=== PATIENT | female | born 1985 | race Caucasian/White ===

== ENCOUNTER 2018-06-18 22:33 | Emergency (ER) | payer OTHER, SELFPAY ==
[2018-06-18 22:53] VITALS: O2SAT 98
--- NOTE | 2018-06-18 23:13 | ERPHSYRPT ---
- History of Present Illness Time Seen by Provider: 06/18/18 23:06 Source: patient Exam Limitations: no limitations Patient Subjective Stated Complaint: Headache Triage Nursing Assessment: Patient ambulated back to ER and transferred self to bed. Patient complains of headache 7/10. Patient states her headache was 10/10 so she layed down then stood up and felt pressure and her vision started getting blurry as she was walking. Patient light sensitive. Physician History: The patient is a 33-year-old female with her mother complaining that she started getting a headache about 8:00 tonight, or 3 hours ago. She tried to go to sleep but when she got up she felt a funny feeling in her head. She is a little bit nauseated. Light bothers her. She had significant amounts of alcohol last night because it was her 33st birthday. She started having headaches about 2 months ago of a similar nature. She denies numbness or tingling. She did have blurred vision tonight with the onset of the headache. She denies any head trauma. The headache is at the top of her head. Her past medical history is unremarkable. Timing/Duration: today, hour(s) (3), sudden, worse Quality: fullness, pressure Head Pain Location: parietal Severity of Pain-Max: moderate Severity of Pain-Current: moderate Recent Head Trauma: occasional headaches Modifying Factors: Improves With: exposure to light Associated Symptoms: nausea/vomiting, vision changes, No loss of consciousness, No numbness in legs/feet Previous symptoms: same symptoms as today, no recent treatment Allergies/Adverse Reactions: No Known Drug Allergies Allergy (Verified 06/18/18 22:53) Hx Tetanus, Diphtheria Vaccination/Date Given: No Hx Influenza Vaccination/Date Given: No Hx Pneumococcal Vaccination/Date Given: No Immunizations Up to Date: Yes - Review of Systems Constitutional: No Fever, No Chills Eyes: Photophobia, Vision Changes Ears, Nose, & Throat: No Symptoms Respiratory: No Cough, No Dyspnea Cardiac: No Chest Pain, No Edema, No Syncope Abdominal/Gastrointestinal: No Abdominal Pain, No Nausea, No Vomiting, No Diarrhea Genitourinary Symptoms: No Dysuria Musculoskeletal: No Back Pain, No Neck Pain Skin: No Rash Neurological: Headache Psychological: No Symptoms Endocrine: No Symptoms Hematologic/Lymphatic: No Symptoms Immunological/Allergic: No Symptoms All Other Systems: Reviewed and Negative - Past Medical History Pertinent Past Medical History: No Neurological History: No Pertinent History ENT History: No Pertinent History Cardiac History: No Pertinent History Respiratory History: No Pertinent History Endocrine Medical History: No Pertinent History Musculoskeletal History: No Pertinent History GI Medical History: No Pertinent History History: No Pertinent History Psycho-Social History: Anxiety, Panic Disorder Female Reproductive Disorders: No Pertinent History Other Medical History: NONE; CURRENTLY NOT TAKING ANYTHING FOR PAIN. - Past Surgical History Past Surgical History: Yes Gastrointestinal: Cholecystectomy Female Surgical History: Section - Social History Smoking Status: Current some day smoker How long have you smoked: 10 years Exposure to second hand smoke: Yes Alcohol Use: Socially Drug Use: none Patient Lives Alone: No Significant Family History: no pertinent family hx - Female History Hx Last Menstrual Period: two weeks ago Hx Now: No - Nursing Vital Signs Nursing Vital Signs: Initial Vital Signs Temperature 98.6 F 06/18/18 22:47 Pulse Rate 90 06/18/18 22:47 Respiratory Rate 18 06/18/18 22:47 Blood Pressure 125/82 06/18/18 22:47 O2 Sat by Pulse Oximetry 98 06/18/18 22:47 Pain Scale Pain Intensity 5 - Physical Exam General Appearance: mild distress, obese Eye Exam: PERRL/EOMI, photophobia Ears, Nose, Throat Exam: normal ENT inspection, moist mucous membranes Neck Exam: normal inspection, supple, full range of motion, No meningismus Respiratory Exam: normal breath sounds, lungs clear Cardiovascular Exam: regular rate/rhythm, normal heart sounds Gastrointestinal/Abdominal Exam: soft, No tenderness, No distention Back Exam: normal inspection, normal range of motion Extremity Exam: normal inspection Mental Status Exam: alert, oriented x 3, 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 Exam: normal speech, PERRL, hearing deficit (R) (known hearing loss in right ear), No abnormal speech, No facial asymmetry, No facial droop, No facial paresthesias, No facial weakness Coordination/Gait Exam: normal cerebellar function Motor/Sensory Exam: no motor deficit, no sensory deficit Skin Exam: normal color, warm, dry, No rash SpO2 Interpretation: normal SpO2: 98 Oxygen Delivery: Room Air - CT Exams Head CT Interpretation: Negative, Tele-radiologist Report (per Dr Crews), No/ Intracranial Hemorrhag Ordered Tests: Active Orders 24 hr Category Date Time Status HEAD WITHOUT CONTRAST [CT] Stat Exams 06/18/18 23:57 Taken Medication Summary Discontinued Medications Generic Name Dose Route Start Last Admin Trade Name Chelsea PRN Reason Stop Dose Admin Ketorolac Tromethamine 60 mg 06/19/18 00:25 06/19/18 00:49 Toradol 30 Mg Injection IM 06/19/18 00:26 60 mg STAT ONE Administration Ketorolac Tromethamine Confirm 06/19/18 00:28 Toradol 30 Mg Injection Administered 06/19/18 00:29 Dose 60 mg .ROUTE .STK-MED ONE Promethazine HCl 50 mg 06/19/18 00:25 06/19/18 00:50 Phenergan 25 Mg Inj IM 06/19/18 00:26 50 mg STAT ONE Administration Promethazine HCl Confirm 06/19/18 00:28 Phenergan 25 Mg Inj Administered 06/19/18 00:29 Dose 50 mg .ROUTE .STK-MED ONE - Progress Progress: improved Blood Culture(s) Obtained: No Antibiotics given: No Counseled pt/family regarding: diagnosis, rad results - Departure Time of Disposition: 01:01 Departure Disposition: Home Clinical Impression: Headache Condition: Stable Critical Care Time: No Referrals: KOJO ANN [Primary Care Provider] - Additional Instructions: You have a migraine headache. You were given Toradol 60 mg and Phenergan 50 mg by IM in the ER. Stay well hydrated. Follow-up with your primary medical doctor as needed.
[2018-06-19 00:10] VITALS: BP 123/81; PULSE 82
[2018-06-19] MEDS ORDERED: Phenergan 25 MG INJ IM ONE (00:25)
[2018-06-19] MEDS ORDERED: TORAdol 30 mg Injection IM ONE (00:25)
[2018-06-19] MEDS ORDERED: TORAdol 30 mg Injection ONE (00:28)
[2018-06-19] MEDS ORDERED: Phenergan 25 MG INJ ONE (00:28)
--- NOTE | 2018-06-19 09:13 | XRAY ---
Indication: Headache. Multiple contiguous axial images obtained through the head without contrast. Comparison: None. Normal brain parenchyma, ventricles, and bony calvarium. Visualized paranasal sinuses and mastoid air cells are clear. Impression: Normal CT head without contrast exam. Comment: Preliminary interpretation was made by [facility]. No discrepancy. CT DI 67.99
== END 2018-06-19 01:37 | disposition home or self-care (01) ==
LOC: ED 22:33
DX: R51 Headache (principal); R11.0 Nausea; R11.2 Nausea with vomiting, unspecified; H53.9 Unspecified visual disturbance
CPT/HCPCS: 70450; 96372; 99284; J1885; J2550

== ENCOUNTER 2018-08-21 14:21 | Emergency (ER) | payer OTHER ==
[2018-08-21 14:31] VITALS: O2SAT 98
[2018-08-21] MEDS ORDERED: BABY ASPIRIN 81 MG CHEW PO ONE (14:43)
[2018-08-21] MEDS ORDERED: Sodium Chloride 0.9% 1000 ML 1,000 ML IV SCH (14:45)
--- NOTE | 2018-08-21 14:51 | ERPHSYRPT ---
- History of Present Illness Time Seen by Provider: 08/21/18 14:38 Historian: patient Exam Limitations: clinical condition Patient Subjective Stated Complaint: PT ARRIVED PER AMBULANCE FOR CO CHEST PRESSURE OFF AND ON TODAY, SHE WAS AT [facility] ? [facility] WHEN IT STARTED,DIZZINESS AT TIMES Triage Nursing Assessment: PT ALERT, RESP EASY, CHEST CLEAR, ABD SOFT, NO EDEMA Physician History: PATIENT COMPLAINS OF HAVING SUBSTERNAL PRESSURE DISCOMFORT OVER THE PAST 4-5 DAYS, EXACERBATED UPON INSPIRATION AND MOTION OF CHEST. HAS ASSOCIATED OCCASIONAL PATIENT DENIES FEVER, CHILLS, DYSPNEA, RADIATION OF PAIN TO HER, NECK , JAW OR ARMS. HAS A NONPRODUCTIVE COUGH. Timing/Duration: day(s) Activities at Onset: none Quality: pressure Location: substernal Chest Pain Radiation: no radiation Severity of Pain-Max: moderate Severity of Pain-Current: moderate Modifying Factors: Improves With: movement, change in position Associated Symptoms: cough Prior Chest Pain/Cardiac Workup: no prior chest pain Aspirin Treatment Today: 81 mg x 4, provided by ED Allergies/Adverse Reactions: No Known Drug Allergies Allergy (Verified 06/18/18 22:53) Hx Tetanus, Diphtheria Vaccination/Date Given: No Hx Influenza Vaccination/Date Given: No Hx Pneumococcal Vaccination/Date Given: No Immunizations Up to Date: No - Review of Systems Constitutional: No Fever, No Chills Eyes: No Symptoms Ears, Nose, & Throat: No Symptoms Respiratory: No Symptoms, No Cough, No Dyspnea Cardiac: No Chest Pain, No Edema, No Syncope Abdominal/Gastrointestinal: No Symptoms, No Abdominal Pain, No Nausea, No Vomiting, No Diarrhea Genitourinary Symptoms: No Symptoms, No Dysuria Musculoskeletal: No Symptoms, No Back Pain, No Neck Pain Skin: No Symptoms, No Rash Neurological: No Dizziness, No Focal Weakness, No Sensory Changes Psychological: No Symptoms Endocrine: No Symptoms All Other Systems: Reviewed and Negative - Past Medical History Pertinent Past Medical History: No Neurological History: No Pertinent History ENT History: No Pertinent History Cardiac History: No Pertinent History Respiratory History: No Pertinent History Endocrine Medical History: No Pertinent History Musculoskeletal History: No Pertinent History GI Medical History: No Pertinent History History: No Pertinent History Psycho-Social History: Anxiety, Panic Disorder Female Reproductive Disorders: No Pertinent History Other Medical History: NONE; CURRENTLY NOT TAKING ANYTHING FOR PAIN. - Past Surgical History Past Surgical History: Yes Gastrointestinal: Cholecystectomy Female Surgical History: Section - Social History Smoking Status: Current every day smoker How long have you smoked: 10 years Exposure to second hand smoke: Yes Alcohol Use: Socially Drug Use: none Patient Lives Alone: No Significant Family History: no pertinent family hx - Female History Hx Last Menstrual Period: NOV Hx Now: No - Nursing Vital Signs Nursing Vital Signs: Initial Vital Signs Temperature 97.2 F 08/21/18 14:25 Pulse Rate 90 08/21/18 14:25 Respiratory Rate 16 08/21/18 14:25 Blood Pressure 103/78 08/21/18 14:25 O2 Sat by Pulse Oximetry 98 08/21/18 14:25 Pain Scale Pain Intensity 7 - Physical Exam General Appearance: no apparent distress, alert Eye Exam: PERRL/EOMI, eyes nml inspection Ears, Nose, Throat Exam: normal ENT inspection, moist mucous membranes Neck Exam: normal inspection, non-tender, supple, full range of motion Respiratory Exam: normal breath sounds, chest tenderness (PARASTERNAL TENDERNESS T-4 TO T-6), lungs clear, No respiratory distress Cardiovascular Exam: regular rate/rhythm, normal heart sounds Gastrointestinal/Abdomen Exam: soft, normal bowel sounds, No tenderness, No mass Back Exam: normal inspection, No CVA tenderness, No vertebral tenderness Extremity Exam: normal inspection, normal range of motion Neurologic Exam: alert, oriented x 3, cooperative, normal mood/affect, sensation nml, No motor deficits Skin Exam: normal color, warm, dry SpO2 Interpretation: normal SpO2: 98 Oxygen Delivery: Room Air - Course EKG Interpreted by Me: RATE, Sinus Rhythm, NORMAL AXIS - Radiology Exams Chest X-ray Interpretation: Interpreted by me, Negative, No Infiltrates Ordered Tests: Active Orders 24 hr Category Date Time Status CHEST 2 VIEWS (PA AND LAT) Stat Exams 08/21/18 15:32 Taken CBC W DIFF Stat Lab 08/21/18 15:06 Completed CMP Stat Lab 08/21/18 15:06 Completed D-DIMER QUANTITATION Stat Lab 08/21/18 15:06 Completed HCG,QUALITATIVE URINE Stat Lab 08/21/18 15:21 Completed MAGNESIUM Stat Lab 08/21/18 15:06 Completed PROTIME WITH INR Stat Lab 08/21/18 15:06 Completed TROPONIN Q3H Lab 08/21/18 15:06 Completed TROPONIN Q3H Lab 08/21/18 17:45 Ordered TROPONIN Q3H Lab 08/21/18 20:45 Ordered TROPONIN Q3H Lab 08/21/18 23:45 Ordered TROPONIN Q3H Lab 08/22/18 02:45 Ordered UA W/RFX UR CULTURE Stat Lab 08/21/18 15:21 Completed Medication Summary Generic Name Dose Route Start Last Admin Trade Name Chelsea PRN Reason Stop Dose Admin Sodium Chloride 1,000 mls @ 50 mls/hr 08/21/18 14:45 08/21/18 14:55 Sodium Chloride 0.9% 1000 Ml IV 09/20/18 14:44 50 mls/hr .Q20H NANCY Administration Discontinued Medications Generic Name Dose Route Start Last Admin Trade Name Chelsea PRN Reason Stop Dose Admin Aspirin 324 mg 08/21/18 14:43 08/21/18 14:55 Baby Aspirin 81 Mg Chew PO 08/21/18 14:44 324 mg STAT ONE Administration Aspirin Confirm 08/21/18 14:53 Baby Aspirin 81 Mg Chew Administered 08/21/18 14:54 Dose 324 mg .ROUTE .STK-MED ONE Ceftriaxone Sodium/Dextrose 1 g in 50 mls @ 100 mls/hr 08/21/18 15:33 15:48 Rocephin 1 Gm-D5w 50 Ml Bag IV 08/21/18 16:02 1 ml/hr STAT STA 1 mls/hr Administration Ceftriaxone Sodium/Dextrose Confirm 08/21/18 15:44 Rocephin 1 Gm-D5w 50 Ml Bag Administered 08/21/18 15:45 Dose 1 g in 50 mls @ ud IV .STK-MED ONE Ketorolac Tromethamine 30 mg 08/21/18 15:33 08/21/18 15:47 Toradol 30 Mg Injection IV 08/21/18 15:34 30 mg STAT ONE Administration Ketorolac Tromethamine Confirm 08/21/18 15:44 Toradol 30 Mg Injection Administered 08/21/18 15:45 Dose 30 mg .ROUTE .STK-MED ONE Lab/Rad Data: Laboratory Result Diagrams 08/21/18 15:06 08/21/18 15:06 Laboratory Results 08/21/18 08/21/18 08/21/18 Range/Units 15:21 15:21 15:06 WBC (4.0-10.5) K/mm3 RBC (4.1-5.4) M/mm3 Hgb (12.0-16.0) gm/dl Hct (35-47) % MCV (78-100) fl MCH (26-32) pg MCHC (32-36) g/dl RDW (11.5-14.0) % Plt Count (150-450) K/mm3 MPV (6-9.5) fl Gran % (36.0-66.0) % Eos # (Auto) (0-0.5) Absolute Lymphs (auto) (1.0-4.6) Absolute Monos (auto) (0.0-1.3) Lymphocytes % (24.0-44.0) % Monocytes % (0.0-12.0) % Eosinophils % (0.00-5.0) % Basophils % (0.0-0.4) % Absolute Granulocytes (1.4-6.9) Basophils # (0-0.4) PT (9.95-12.35) SECONDS INR (0.8-3.0) D-Dimer (215-500) ng/mL Sodium (137-145) mmol/L Potassium (3.5-5.1) mmol/L Chloride (98-107) mmol/L Carbon Dioxide (22-30) mmol/L Anion Gap (5-15) MEQ/L BUN (7-17) mg/dL Creatinine (0.52-1.04) mg/dL Estimated GFR ML/MIN Glucose (74-106) mg/dL Calcium (8.4-10.2) mg/dL Magnesium (1.6-2.3) mg/dL Total Bilirubin (0.2-1.3) mg/dL AST (14-36) U/L ALT (0-35) U/L Alkaline Phosphatase (38-126) U/L Troponin I < 0.012 (0.000-0.034) ng/mL Serum Total Protein (6.3-8.2) g/dL Albumin (3.5-5.0) g/dL Urine Color YELLOW (YELLOW) Urine Appearance CLEAR (CLEAR) Urine pH 5.0 (5-6) Ur Specific [place] 1.020 (1.005-1.025) Urine Protein NEGATIVE (Negative) Urine Ketones NEGATIVE (NEGATIVE) Urine Blood NEGATIVE (0-5) Harry/ul Urine Nitrite NEGATIVE (NEGATIVE) Urine Bilirubin NEGATIVE (NEGATIVE) Urine Urobilinogen 2 (0-1) mg/dL Ur Leukocyte Esterase NEGATIVE (NEGATIVE) Urine WBC (Auto) NONE (0-5) /HPF Urine RBC (Auto) 0-2 (0-2) /HPF U Epithel Cells (Auto) RARE (FEW) /HPF Urine Bacteria (Auto) NONE SEEN (NEGATIVE) /HPF Urine Mucus (Auto) SLIGHT (NEGATIVE) /HPF Urine Culture Reflexed NO (NO) Urine Glucose NEGATIVE (NEGATIVE) mg/dL Urine HCG, Qual NEGATIVE (Negative) 08/21/18 08/21/18 08/21/18 Range/Units 15:06 15:06 15:06 WBC 12.4 H (4.0-10.5) K/mm3 RBC 4.04 L (4.1-5.4) M/mm3 Hgb 13.4 (12.0-16.0) gm/dl Hct 41.4 (35-47) % MCV 102.5 H (78-100) fl MCH 33.1 H (26-32) pg MCHC 32.4 (32-36) g/dl RDW 12.7 (11.5-14.0) % Plt Count 307 (150-450) K/mm3 MPV 10.8 H (6-9.5) fl Gran % 74.3 H (36.0-66.0) % Eos # (Auto) 0.23 (0-0.5) Absolute Lymphs (auto) 2.11 (1.0-4.6) Absolute Monos (auto) 0.80 (0.0-1.3) Lymphocytes % 17.1 L (24.0-44.0) % Monocytes % 6.5 (0.0-12.0) % Eosinophils % 1.9 (0.00-5.0) % Basophils % 0.2 (0.0-0.4) % Absolute Granulocytes 9.20 H (1.4-6.9) Basophils # 0.02 (0-0.4) PT 12.7 H (9.95-12.35) SECONDS INR 1.09 (0.8-3.0) D-Dimer 258 (215-500) ng/mL Sodium 141 (137-145) mmol/L Potassium 4.1 (3.5-5.1) mmol/L Chloride 106 (98-107) mmol/L Carbon Dioxide 28 (22-30) mmol/L Anion Gap 11.3 (5-15) MEQ/L BUN 16 (7-17) mg/dL Creatinine 0.92 (0.52-1.04) mg/dL Estimated GFR > 60.0 ML/MIN Glucose 85 (74-106) mg/dL Calcium 9.6 (8.4-10.2) mg/dL Magnesium 1.8 (1.6-2.3) mg/dL Total Bilirubin 0.40 (0.2-1.3) mg/dL AST 25 (14-36) U/L ALT 27 (0-35) U/L Alkaline Phosphatase 56 (38-126) U/L Troponin I (0.000-0.034) ng/mL Serum Total Protein 8.4 H (6.3-8.2) g/dL Albumin 4.6 (3.5-5.0) g/dL Urine Color (YELLOW) Urine Appearance (CLEAR) Urine pH (5-6) Ur Specific [place] (1.005-1.025) Urine Protein (Negative) Urine Ketones (NEGATIVE) Urine Blood (0-5) Harry/ul Urine Nitrite (NEGATIVE) Urine Bilirubin (NEGATIVE) Urine Urobilinogen (0-1) mg/dL Ur Leukocyte Esterase (NEGATIVE) Urine WBC (Auto) (0-5) /HPF Urine RBC (Auto) (0-2) /HPF U Epithel Cells (Auto) (FEW) /HPF Urine Bacteria (Auto) (NEGATIVE) /HPF Urine Mucus (Auto) (NEGATIVE) /HPF Urine Culture Reflexed (NO) Urine Glucose (NEGATIVE) mg/dL Urine HCG, Qual (Negative) - Progress Progress: improved Progress Note: 08/21/18 16:10 IV ROCEPHIN 1 GM, TORADOL 30MG IV Blood Culture(s) Obtained: Yes Antibiotics given: Yes - Departure Time of Disposition: 16:45 Departure Disposition: Home Clinical Impression: ACUTE BRONCHITIS, COSTOCHONDRITIS Condition: Stable Critical Care Time: No Referrals: KOJO ANN [Primary Care Provider] - Additional Instructions: ANTIBIOTIC ZITHROMAX 250MG, 2 TABLETS ON DAY 1 FOLLOWED BY 1 TABLET DAILY FOR 4 DAYS. TORADOL 10MG EVERY 6 HOURS NEEDED FOR PAIN. CONSULT YOUR PRIMARY CARE PROVIDER FOR FOLLOWUP IN 1 WEEK. Prescriptions: Ketorolac Tromethamine [Toradol] 10 mg PO Q6HPRN PRN #20 tablet PRN Reason: Pain Azithromycin 250 mg [Zithromax 250 MG TABLET] 250 mg PO ZPACK #6 tablet
[2018-08-21] MEDS ORDERED: BABY ASPIRIN 81 MG CHEW ONE (14:53)
[2018-08-21] MEDS ORDERED: Sodium Chloride 0.9% 1000 ML 1,000 ML ONE (14:53)
[2018-08-21 15:09] LABS: BASOPHIL % 0.2 % (0.0-0.4); Basophil (Absolute #) 0.02 (0-0.4); Eosinophil % 1.9 % (0.00-5.0); Eosinophil (Absolute #) 0.23 (0-0.5); Granulocytes % 74.3 % (36.0-66.0); Hematocrit 41.4 % (35-47); Hemoglobin 13.4 gm/dl (12.0-16.0); Lymphocyte (Absolute #) 2.11 (1.0-4.6); Lymphocytes % 17.1 % (24.0-44.0); Mean Cell Volume 102.5 fl (78-100); Mean Corpuscular Hgb Concent. 32.4 g/dl (32-36); Mean Platelet Volume 10.8 fl (6-9.5); Monocytes % 6.5 % (0.0-12.0); Platelet Count 307 K/mm3 (150-450); Red Blood Count 4.04 M/mm3 (4.1-5.4); Red Cell Distribution Width 12.7 % (11.5-14.0); White Blood Count 12.4 K/mm3 (4.0-10.5)
[2018-08-21 15:14] LABS: INR 1.09 (0.8-3.0)
[2018-08-21 15:18] LABS: Mean Corpuscular Hemoglobin 33.1 pg (26-32)
[2018-08-21 15:21] LABS: ALBUMIN 4.6 g/dL (3.5-5.0); ALKALINE PHOSPHATASE 56 U/L (38-126); ANION GAP 11.3 MEQ/L (5-15); BLOOD UREA NITROGEN 16 mg/dL (7-17); CHLORIDE 106 mmol/L (98-107); Calcium 9.6 mg/dL (8.4-10.2); Carbon Dioxide 28 mmol/L (22-30); Creatinine 1 0.92 mg/dL (0.52-1.04); Glucose 85 mg/dL (74-106); Potassium 4.1 mmol/L (3.5-5.1); SGOT/AST 25 U/L (14-36); SGPT/ALT 27 U/L (0-35); SODIUM 141 mmol/L (137-145); Total Protein 8.4 g/dL (6.3-8.2)
[2018-08-21 15:23] LABS: Appearance CLEAR (CLEAR); Bilirubin NEGATIVE (NEGATIVE); Blood NEGATIVE Ery/ul (0-5); Glucose NEGATIVE (NEGATIVE); Ketones NEGATIVE (NEGATIVE); Leukocyte Esterase NEGATIVE (NEGATIVE); Nitrite NEGATIVE (NEGATIVE); Protein,Urine Dip NEGATIVE (Negative); Urobilinogen 2 mg/dL (0-1)
[2018-08-21] MEDS ORDERED: ROCEPHIN 1 Gm-D5w 50 ml Bag** 1 G/50 ML IVPB IV STA (15:33)
[2018-08-21] MEDS ORDERED: TORAdol 30 mg Injection IV ONE (15:33)
[2018-08-21] MEDS ORDERED: TORAdol 30 mg Injection ONE (15:44)
[2018-08-21] MEDS ORDERED: ROCEPHIN 1 Gm-D5w 50 ml Bag** 1 G/50 ML IVPB IV ONE (15:44)
[2018-08-21 16:53] VITALS: BP 102/70; PULSE 70
--- NOTE | 2018-08-21 22:19 | XRAY ---
Indication: Chest pain, cough, and dyspnea. Comparison: October 24, 2014. PA/lateral chest remains clear. Heart and mediastinal structures within normal limits. Bony thorax intact. Impression: Stable nonacute chest.
== END 2018-08-21 16:50 | disposition home or self-care (01) ==
LOC: ED 14:21
DX: J20.9 Acute bronchitis, unspecified (principal); M94.0 Chondrocostal junction syndrome [Tietze]; F17.200 Nicotine dependence, unspecified, uncomplicated
CPT/HCPCS: 36415; 71046; 80053; 81001; 83735; 84484; 84703; 85025; 85379; 85610; 96360; 96361; 96365; 96374; 99284; J0696; J1885; A9270-GY

== ENCOUNTER 2019-02-05 02:20 | Emergency (ER) | payer OTHER, SELFPAY ==
--- NOTE | 2019-02-05 02:31 | ERPHSYRPT ---
- History of Present Illness Time Seen by Provider: 02/05/19 02:30 Source: patient, family Exam Limitations: no limitations Physician History: 33 y/o white female presents with 2 week h/o dysuria and mild flank pain. pt drank cranberry juice and drank lots of water and sx improved. however, yesterday her sx of flank pain and painful urination worsened. pt denies allergies to medications Timing/Duration: day(s) (2) Method of Injury: other (no injury) Quality: burning, sharp Back Pain Location: lumbar spine Severity of Pain-Max: mild Severity of Pain-Current: mild Associated Symptoms: lower back pain Previous symptoms: same symptoms as today Allergies/Adverse Reactions: No Known Drug Allergies Allergy (Verified 06/18/18 22:53) Hx Tetanus, Diphtheria Vaccination/Date Given: No Hx Influenza Vaccination/Date Given: No Hx Pneumococcal Vaccination/Date Given: No - Review of Systems Constitutional: No Symptoms Eyes: No Symptoms Ears, Nose, & Throat: No Symptoms Respiratory: No Symptoms Cardiac: No Symptoms Abdominal/Gastrointestinal: No Symptoms Genitourinary Symptoms: Dysuria, Flank Pain, No Vaginal Bleeding, No Vaginal Discharge, No Vaginal Itching Musculoskeletal: No Symptoms Skin: No Symptoms Neurological: No Symptoms Psychological: No Symptoms Endocrine: No Symptoms Hematologic/Lymphatic: No Symptoms Immunological/Allergic: No Symptoms All Other Systems: Reviewed and Negative - Past Medical History Pertinent Past Medical History: No Neurological History: No Pertinent History ENT History: No Pertinent History Cardiac History: No Pertinent History Respiratory History: No Pertinent History Endocrine Medical History: No Pertinent History Musculoskeletal History: No Pertinent History GI Medical History: No Pertinent History History: No Pertinent History Psycho-Social History: Anxiety, Panic Disorder Female Reproductive Disorders: No Pertinent History Other Medical History: NONE; CURRENTLY NOT TAKING ANYTHING FOR PAIN. - Past Surgical History Past Surgical History: Yes Gastrointestinal: Cholecystectomy Female Surgical History: Section - Social History Smoking Status: Current every day smoker How long have you smoked: 10 years Exposure to second hand smoke: Yes Alcohol Use: Socially Drug Use: none Patient Lives Alone: No Significant Family History: no pertinent family hx - Nursing Vital Signs Nursing Vital Signs: Initial Vital Signs Temperature 98.7 F 02/05/19 02:20 Pulse Rate 75 02/05/19 02:20 Respiratory Rate 20 02/05/19 02:20 Blood Pressure 135/85 02/05/19 02:20 O2 Sat by Pulse Oximetry 97 02/05/19 02:20 Pain Scale Pain Intensity 8 - Physical Exam General Appearance: no apparent distress, alert, anxiety Eye Exam: PERRL/EOMI, eyes nml inspection Ears, Nose, Throat Exam: normal ENT inspection, moist mucous membranes Neck Exam: normal inspection, non-tender, supple, full range of motion Respiratory Exam: airway intact, No chest tenderness, No respiratory distress Gastrointestinal Exam: No tenderness Pelvic Exam: not done Rectal Exam: not done Back Exam: normal inspection, normal range of motion, CVA tenderness (mild bilat ), No vertebral tenderness Extremity Exam: normal inspection, normal range of motion, pelvis stable Neurologic Exam: alert, oriented x 3, cooperative, 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 as tested Skin Exam: normal color, warm, dry Lymphatic Exam: No adenopathy SpO2 Interpretation: normal O2 Delivery: Room Air - Course Nursing assessment & vital signs reviewed: Yes Ordered Tests: Active Orders 24 hr Category Date Time Status CULTURE,URINE Stat Lab 02/05/19 03:10 Received HCG,QUALITATIVE URINE Stat Lab 02/05/19 03:10 Completed UA W/RFX UR CULTURE Stat Lab 02/05/19 03:10 Completed Lab/Rad Data: Laboratory Results 02/05/19 02/05/19 Range/Units 03:10 03:10 Urine Color YELLOW (YELLOW) Urine Appearance CLOUDY (CLEAR) Urine pH 6.0 (5-6) Ur Specific [place] 1.020 (1.005-1.025) Urine Protein NEGATIVE (Negative) Urine Ketones NEGATIVE (NEGATIVE) Urine Blood NEGATIVE (0-5) Harry/ul Urine Nitrite NEGATIVE (NEGATIVE) Urine Bilirubin NEGATIVE (NEGATIVE) Urine Urobilinogen 4 (0-1) mg/dL Ur Leukocyte Esterase SMALL (NEGATIVE) Urine WBC (Auto) 51-100 (0-5) /HPF Urine RBC (Auto) 3-5 (0-2) /HPF U Epithel Cells (Auto) FEW (FEW) /HPF Urine Bacteria (Auto) RARE (NEGATIVE) /HPF Urine Mucus (Auto) SLIGHT (NEGATIVE) /HPF Urine Culture Reflexed YES (NO) Urine Glucose NEGATIVE (NEGATIVE) mg/dL Urine HCG, Qual NEGATIVE (Negative) - Progress Progress: unchanged Counseled pt/family regarding: lab results, diagnosis, need for follow-up - Departure Departure Disposition: Home Clinical Impression: UTI (urinary tract infection) Condition: Stable Critical Care Time: No Referrals: KOJO ANN [Primary Care Provider] - Additional Instructions: drink plenty of fluids. use tylenol and ibuprofen for pain. follow up with primary doctor for persistent symptoms Prescriptions: Ciprofloxacin [Cipro 500 MG] 500 mg PO BID #14 tablet Phenazopyridine HCl 200 mg [Pyridium 200 mg] 200 mg PO TID #6 tablet
[2019-02-05 04:02] VITALS: PULSE 78
[2019-02-05 04:23] LABS: Appearance CLOUDY (CLEAR); Bacteria RARE /HPF (NEGATIVE); Bilirubin NEGATIVE (NEGATIVE); Blood NEGATIVE Ery/ul (0-5); Epithelial Cells FEW /HPF (FEW); Glucose NEGATIVE (NEGATIVE); Ketones NEGATIVE (NEGATIVE); Leukocyte Esterase SMALL (NEGATIVE); Mucus SLIGHT /HPF (NEGATIVE); Nitrite NEGATIVE (NEGATIVE); Protein,Urine Dip NEGATIVE (Negative); Urobilinogen 4 mg/dL (0-1); WBC 51-100 /HPF (0-5)
[2019-02-05] MEDS ORDERED: Levofloxacin 500 MG Tablet PO ONE (04:24)
[2019-02-05] MEDS ORDERED: PYRIDIUM 200 MG PO ONE (04:25)
[2019-02-05] MEDS ORDERED: NORCO 5/325 MG PO ONE (04:25)
[2019-02-05] MEDS ORDERED: Levofloxacin 500 MG Tablet ONE (04:30)
[2019-02-05] MEDS ORDERED: PYRIDIUM 200 MG ONE (04:31)
[2019-02-05] MEDS ORDERED: NORCO 5/325 MG ONE (04:31)
[2019-02-05 05:03] VITALS: BP 135/94; O2SAT 100
== END 2019-02-05 05:10 | disposition home or self-care (01) ==
LOC: ED 02:20
DX: N39.0 Urinary tract infection, site not specified (principal)
CPT/HCPCS: 81001; 84703; 87077; 87086; 87186; 99284; A9270-GY

== ENCOUNTER 2019-05-23 05:41 | Emergency (ER) | payer OTHER ==
[2019-05-23] MEDS ORDERED: TORAdol 30 mg Injection IM ONE (05:59)
[2019-05-23] MEDS ORDERED: Vistaril 50 MG/ML IM ONE ×2 (06:00→06:03)
[2019-05-23] MEDS ORDERED: TORAdol 30 mg Injection ONE (06:03)
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
[2019-05-23 06:19] LABS: BASOPHIL % 0.2 % (0.0-0.4); Basophil (Absolute #) 0.02 (0-0.4); Eosinophil % 2.8 % (0.00-5.0); Eosinophil (Absolute #) 0.23 (0-0.5); Granulocyte Absolute (ANC) 5.26 (1.4-6.9); Granulocytes % 63.7 % (36.0-66.0); Hematocrit 36.7 % (35-47); Lymphocyte (Absolute #) 2.06 (1.0-4.6); Lymphocytes % 24.9 % (24.0-44.0); Mean Cell Volume 103.7 fl (78-100); Mean Corpuscular Hgb Concent. 32.7 g/dl (32-36); Mean Platelet Volume 10.7 fl (6-9.5); Monocyte (Absolute #) 0.69 (0.0-1.3); Monocytes % 8.4 % (0.0-12.0); Platelet Count 255 K/mm3 (150-450); Red Blood Count 3.54 M/mm3 (4.1-5.4); Red Cell Distribution Width 12.7 % (11.5-14.0); White Blood Count 8.3 K/mm3 (4.0-10.5)
[2019-05-23 06:29] LABS: Mean Corpuscular Hemoglobin 33.8 pg (26-32)
[2019-05-23 06:36] LABS: ALBUMIN 3.6 g/dL (3.5-5.0); ALKALINE PHOSPHATASE 47 U/L (38-126); ANION GAP 14.5 MEQ/L (5-15); BLOOD UREA NITROGEN 16 mg/dL (7-17); CHLORIDE 107 mmol/L (98-107); Carbon Dioxide 25 mmol/L (22-30); Creatinine 1 0.77 mg/dL (0.52-1.04); Glucose 141 mg/dL (74-106); Potassium 3.7 mmol/L (3.5-5.1); SGOT/AST 21 U/L (14-36); SGPT/ALT 24 U/L (0-35); SODIUM 143 mmol/L (137-145); Total Protein 6.6 g/dL (6.3-8.2)
[2019-05-23 08:58] VITALS: BP 108/96; PULSE 93; O2SAT 98
--- NOTE | 2019-05-23 10:56 | XRAY ---
Indication: Chest pain. Comparison: August 21, 2018. Portable chest again demonstrates normal heart and lungs. Bony thorax intact. No new/acute findings.
== END 2019-05-23 08:58 | disposition home or self-care (01) ==
LOC: ED 05:41
DX: F41.9 Anxiety disorder, unspecified (principal); R07.9 Chest pain, unspecified
CPT/HCPCS: 36415; 71045; 80053; 84484; 84703; 85025; 93005; 96372; 99284; J1885; J3410

== ENCOUNTER 2019-07-23 01:26 | Emergency (ER) | payer OTHER ==
[2019-07-23] MEDS ORDERED: MOTRIN 600 MG ONE (01:42)
--- NOTE | 2019-07-23 01:44 | ERPHSYRPT ---
- History of Present Illness Time Seen by Provider: 07/23/19 01:43 Source: patient, family Exam Limitations: no limitations Physician History: 34 y/o morbidly obese white female slipped on porch and fell onto back and buttock. occurred [employer]. Occurred: just prior to arrival Reason for Fall: slipped (on wet porch while wearing crocs) Injuries/Pain Location: back (lower and buttocks) Loss of Consciousness: no loss of consciousness Severity of Pain-Max: moderate Severity of Pain-Current: moderate Modifying Factors: Improves With: movement Associated Symptoms (Fall): back pain (and buttock), muscle spasms Allergies/Adverse Reactions: No Known Drug Allergies Allergy (Verified 07/23/19 01:44) Home Medications: No Reportable Medications [No Reported Medications] 05/23/19 [History] Hx Tetanus, Diphtheria Vaccination/Date Given: No Hx Influenza Vaccination/Date Given: No Hx Pneumococcal Vaccination/Date Given: No - Review of Systems Constitutional: No Symptoms Eyes: No Symptoms Ears, Nose, & Throat: No Symptoms Respiratory: No Symptoms Cardiac: No Symptoms Abdominal/Gastrointestinal: No Symptoms Genitourinary Symptoms: No Symptoms Musculoskeletal: Back Pain Skin: No Symptoms Neurological: No Symptoms Psychological: No Symptoms Endocrine: No Symptoms Hematologic/Lymphatic: No Symptoms - Past Medical History Pertinent Past Medical History: Yes Neurological History: No Pertinent History ENT History: No Pertinent History Cardiac History: No Pertinent History Respiratory History: No Pertinent History Endocrine Medical History: No Pertinent History Musculoskeletal History: No Pertinent History GI Medical History: No Pertinent History History: No Pertinent History Psycho-Social History: Anxiety, Depression, Panic Disorder Female Reproductive Disorders: No Pertinent History Other Medical History: NONE; CURRENTLY NOT TAKING ANYTHING FOR PAIN. - Past Surgical History Past Surgical History: Yes Gastrointestinal: Cholecystectomy Female Surgical History: Section - Social History Smoking Status: Current every day smoker (1/2 ppd) How long have you smoked: 10 years Exposure to second hand smoke: Yes Alcohol Use: Socially Drug Use: none Patient Lives Alone: No Significant Family History: no pertinent family hx - Nursing Vital Signs Nursing Vital Signs: Initial Vital Signs Pulse Rate 75 07/23/19 01:45 Respiratory Rate 16 07/23/19 01:45 Blood Pressure 124/86 07/23/19 01:45 O2 Sat by Pulse Oximetry 99 07/23/19 01:45 Pain Scale Pain Intensity [Left Back] 10 Pain Intensity 10 - [place] Coma Score Best Eye Response (Kayla): (4) open spontaneously Best Verbal Response (Kayla): (5) oriented - Physical Exam General Appearance: mild distress, alert, anxiety, obese Head Injury: no evidence of injury Eye Exam: PERRL/EOMI, eyes nml inspection ENT Exam: airway nml, nml ext.inspection, No evidence of ENT injury Neck Exam: supple, trachea midline, full range of motion, normal alignment Respiratory/Chest Exam: No chest tenderness Gastrointestinal Exam: No tenderness Rectal Exam: not done Back Exam: normal inspection, normal range of motion, vertebral tenderness ( lower lumbar spine), other (tender coccyx), No CVA tenderness Extremity Exam: normal inspection, normal range of motion Neurologic Exam: alert, oriented x 3, 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, 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 Skin Exam: normal color, warm SpO2 Interpretation: normal O2 Delivery: Room Air Ordered Tests: Active Orders 24 hr Category Date Time Status LUMBAR LIMITED (2 OR 3 VIEWS) Stat Exams 07/23/19 02:16 Taken SACRUM AND COCCYX Stat Exams 07/23/19 02:18 Taken Medication Summary Discontinued Medications Generic Name Dose Route Start Last Admin Trade Name Freq PRN Reason Stop Dose Admin Ibuprofen Confirm 07/23/19 01:42 Motrin 600 Mg Administered 07/23/19 01:43 Dose 600 mg .ROUTE .STK-MED ONE Ibuprofen 600 mg 07/23/19 01:45 07/23/19 01:46 Motrin 600 Mg PO 07/23/19 01:46 600 mg STAT ONE Administration - Progress Progress: unchanged Progress Note: 07/23/19 04:13 xray saccrococcyx-vrad states no fx or dislocation xray lumbar spine-no acute fx or subluxation Counseled pt/family regarding: diagnosis, need for follow-up, rad results - Departure Departure Disposition: Home Clinical Impression: Fall, Low back pain, Coccyx pain Condition: Stable Critical Care Time: No Referrals: KOJO ANN [Primary Care Provider] - Additional Instructions: ice pack to area 3 times daily for 3 days. tylenol and ibuprofen for pain. follow up with primary doctor for persistent pain
[2019-07-23] MEDS ORDERED: MOTRIN 600 MG PO ONE (01:45)
[2019-07-23] MEDS ORDERED: PERCOCET TABLET 5/325MG ONE (04:16)
[2019-07-23] MEDS ORDERED: PERCOCET TABLET 5/325MG PO STA (04:17)
[2019-07-23 04:26] VITALS: O2SAT 97
[2019-07-23 04:27] VITALS: BP 124/82; PULSE 73
--- NOTE | 2019-07-23 09:39 | XRAY ---
Indication: Pain following fall. Comparison: None 3 views of the lumbar spine demonstrates 5 lumbar vertebral segments in normal alignment with mild L5-S1 disc space narrowing/endplate spurring, remote-appearing minimal T11 anterior wedging deformity, and cholecystectomy clips. No other bony, articular, or soft tissue abnormalities. Comment: Preliminary interpretation was made by [facility]. No discrepancy.
--- NOTE | 2019-07-23 09:39 | XRAY ---
Indication: Pain following fall. Comparison: None 3 views of the sacrum/coccyx obtained. No bony, articular, or soft tissue abnormalities. Lumbar spine reported separately. Comment: Preliminary interpretation was made by [facility]. No discrepancy.
== END 2019-07-23 04:29 | disposition home or self-care (01) ==
LOC: ED 01:26
DX: M54.5 Low back pain (principal); M53.3 Sacrococcygeal disorders, not elsewhere classified; W01.0XXA Fall on same level from slipping, tripping and stumbling without subsequent striking against object, initial encounter; R25.2 Cramp and spasm
CPT/HCPCS: 72100; 72220; 99284; A9270-GY

== ENCOUNTER 2020-07-06 00:09 | Emergency (ER) | payer OTHER ==
[2020-07-06] MEDS ORDERED: XYLOCAINE 1% HCL 20 ML MDV IJ ONE (00:10)
[2020-07-06] MEDS ORDERED: DUONEB 0.5-3 MG/3 ml Neb IH ONE ×2 (00:42→00:51)
[2020-07-06] MEDS ORDERED: Rocephin 1000 MG INJ IM ONE (00:43)
[2020-07-06] MEDS ORDERED: Zithromax 250 MG TABLET PO ONE (00:43)
[2020-07-06] MEDS ORDERED: DELTASONE 20 MG PO ONE (00:43)
[2020-07-06] MEDS ORDERED: Pepcid 20 MG PO ONE (00:44)
[2020-07-06] MEDS ORDERED: Zithromax 250 MG TABLET ONE (00:46)
[2020-07-06] MEDS ORDERED: Pepcid 20 MG ONE (00:46)
[2020-07-06] MEDS ORDERED: Rocephin 1000 MG INJ ONE (00:46)
[2020-07-06] MEDS ORDERED: DELTASONE 20 MG ONE (00:46)
--- NOTE | 2020-07-06 00:51 | ERPHSYRPT ---
- History of Present Illness Time Seen by Provider: 07/06/20 00:32 Source: patient, family Exam Limitations: no limitations Patient Subjective Stated Complaint: pt states "I have drainage in my chest." Triage Nursing Assessment: pt ambulated into the er; pt is axo x4; c/o chest congestion; states intermitten cough; lung sound clear in all lobes; clear heart tone; no cough present; lisa redness in ears; mouth moist and pink; c/o LLQ pain; hypertensive Physician History: Cough, congestion, earache, chest soreness for last 2 weeks. And is on amoxicillin for last 1 week. Not getting better. Patient continues to smoke. Patient denies any chest pain . Patient takes Depo shot Patient states that she was tested forcovid ago and it was negative Timing/Duration: week(s) (2) Severity: moderate Modifying Factors: Worsens With: immobilization, medication Associated Symptoms: shortness of breath, cough, No nausea, No vomiting, No abdominal pain, No heartburn, No diaphoresis, No chills, No chest pain, No fever, No headaches, No malaise, No rash, No syncope, No seizure, No weakness Allergies/Adverse Reactions: No Known Drug Allergies Allergy (Verified 07/06/20 00:20) Home Medications: Amoxicillin 500 mg Cap [Amoxil 500 mg] 1 tab PO Q8H 07/06/20 [History] Benzonatate 1 cap PO TID 07/06/20 [History] Hx Tetanus, Diphtheria Vaccination/Date Given: Yes Hx Influenza Vaccination/Date Given: No Hx Pneumococcal Vaccination/Date Given: No Travel Risk - International Travel Have you traveled outside of the country in past 3 weeks: No - Coronavirus Screening Are you exhibiting any of the following symptoms?: No Close contact with a COVID-19 positive Pt in past 14-21 Days: No - Review of Systems Constitutional: No Fever, No Chills Eyes: No Symptoms Ears, Nose, & Throat: No Symptoms, Ear Pain Respiratory: Cough, No Dyspnea Cardiac: No Chest Pain, No Edema, No Syncope Abdominal/Gastrointestinal: No Abdominal Pain, No Nausea, No Vomiting, No Diarrhea Genitourinary Symptoms: No Dysuria Musculoskeletal: No Back Pain, No Neck Pain Skin: No Rash Neurological: No Dizziness, No Focal Weakness, No Sensory Changes Psychological: No Symptoms Endocrine: No Symptoms All Other Systems: Reviewed and Negative - Past Medical History Pertinent Past Medical History: Yes Neurological History: No Pertinent History ENT History: No Pertinent History Cardiac History: No Pertinent History Respiratory History: No Pertinent History Endocrine Medical History: No Pertinent History Musculoskeletal History: No Pertinent History GI Medical History: No Pertinent History History: No Pertinent History Psycho-Social History: Anxiety, Depression, Panic Disorder Female Reproductive Disorders: No Pertinent History Other Medical History: NONE; CURRENTLY NOT TAKING ANYTHING FOR PAIN. - Past Surgical History Past Surgical History: Yes Gastrointestinal: Cholecystectomy Female Surgical History: Section - Social History Smoking Status: Current every day smoker How long have you smoked: 10 years Exposure to second hand smoke: Yes Alcohol Use: Socially Drug Use: none Patient Lives Alone: No Significant Family History: no pertinent family hx - Female History Hx Now: No (unsure) - Nursing Vital Signs Nursing Vital Signs: Initial Vital Signs Temperature 98.1 F 07/06/20 00:22 Pulse Rate 101 H 07/06/20 00:22 Respiratory Rate 18 07/06/20 00:22 Blood Pressure 167/102 07/06/20 00:22 O2 Sat by Pulse Oximetry 98 07/06/20 00:22 Pain Scale Pain Intensity 0 - Physical Exam General Appearance: no apparent distress, alert, obese, other (Patient examined in presence of her boyfriend) Eye Exam: PERRL/EOMI, eyes nml inspection Ears, Nose, Throat Exam: normal ENT inspection, pharynx normal, moist mucous membranes, TM abnormal (R), TM abnormal (L) (Lateral tympanic membrane erythema.) Neck Exam: normal inspection, non-tender, supple, full range of motion Respiratory Exam: normal breath sounds, lungs clear, No respiratory distress Cardiovascular Exam: regular rate/rhythm, normal heart sounds, normal peripheral pulses Gastrointestinal/Abdomen Exam: soft, normal bowel sounds, No tenderness, No mass Back Exam: normal inspection, normal range of motion, No CVA tenderness, No vertebral tenderness Extremity Exam: normal inspection, normal range of motion, pelvis stable Neurologic Exam: alert, oriented x 3, cooperative, normal mood/affect, nml cerebellar function, nml station & gait, sensation nml, No motor deficits Skin Exam: normal color, warm, dry, No rash Lymphatic Exam: No adenopathy SpO2: 98 - Course Nursing assessment & vital signs reviewed: Yes Ordered Tests: Medication Summary Generic Name Dose Route Start Last Admin Trade Name Chelsea PRN Reason Stop Dose Admin Famotidine 20 mg 07/06/20 00:44 Pepcid 20 Mg PO 07/06/20 00:45 STAT ONE Discontinued Medications Generic Name Dose Route Start Last Admin Trade Name Chelsea PRN Reason Stop Dose Admin Albuterol/Ipratropium 3 ml 07/06/20 00:42 Duoneb 0.5-3 Mg/3 Ml Neb IH 07/06/20 00:43 STAT ONE Azithromycin 500 mg 07/06/20 00:43 Zithromax 250 Mg Tablet PO 07/06/20 00:44 STAT ONE Ceftriaxone Sodium 1,000 mg 07/06/20 00:43 Rocephin 1000 Mg Inj IM 07/06/20 00:44 STAT ONE Prednisone 20 mg 07/06/20 00:43 Deltasone 20 Mg PO 07/06/20 00:44 STAT ONE - Progress Progress: unchanged Progress Note: 07/06/20 00:47 Life or limb threatening condition on discharge patient is afebrile, nontoxic. Counseled pt/family regarding: diagnosis, need for follow-up - Departure Departure Disposition: Home Clinical Impression: Bronchitis Bilateral otitis media Qualifiers: Otitis media type: serous Chronicity: acute Recurrence: non-recurrent Qualified Code(s): H65.03 - Acute serous otitis media, bilateral Condition: Good Critical Care Time: No Referrals: KOJO ANN [Primary Care Provider] - Follow Up with PCP Prescriptions: Prednisone 10 mg [Deltasone 10 mg] 10 mg PO DAILY #5 tablet Albuterol 8 gm Mdi Hfa [Ventolin Hfa MDI] 2 puffs IH Q4H PRN #1 [email or web address] PRN Reason: Dyspnea Azithromycin 250 mg [Zithromax 250 MG TABLET] 250 mg PO ZPACK #6 tablet
[2020-07-06 00:57] VITALS: PULSE 98
[2020-07-06 01:15] VITALS: BP 140/84; O2SAT 97
== END 2020-07-06 01:16 | disposition home or self-care (01) ==
LOC: ED 00:09
DX: J40 Bronchitis, not specified as acute or chronic (principal); H65.03 Acute serous otitis media, bilateral; R07.9 Chest pain, unspecified
CPT/HCPCS: 94150; 94640; 96372; 99284; J0696; A9270-GY

== ENCOUNTER 2020-08-06 02:26 | Emergency (ER) | payer OTHER ==
[2020-08-06] MEDS ORDERED: ZOFRAN ODT 4 MG PO ONE (03:34)
[2020-08-06] MEDS ORDERED: ZOFRAN ODT 4 MG ONE (03:36)
--- NOTE | 2020-08-06 03:42 | ERPHSYRPT ---
- History of Present Illness Time Seen by Provider: 08/06/20 02:45 Source: patient Exam Limitations: no limitations Patient Subjective Stated Complaint: pt states "I have increase back pain for the past months but tonight it has got worse." Triage Nursing Assessment: pt ambulated into the er; pt is axo x3; c/o left flank pain; pt state 1/10 pain to left flank; pt states pressure to left flank; bowel sounds active in all quads; clear lung sounds in all lobes; SOB; clear heart tones; denies diarrhea and vomiting; c/o nausea; tachycardic Physician History: This is an obese 35-year-old white female who presents with left flank pain that radiates anteriorly around to left lower quadrant. Patient has had these symptoms for months per her report. She has not noticed any dysuria or hematuria. She has had history of urinary tract infection in the past. Patient has a history of anxiety, panic disorder and depression. Patient denies injury to her back. Patient states she has no history of nephrolithiasis or ure terolithiasis. Patient was seen on 07/06/2020 and was treated for bronchitis. Patient has had no fever, denies vomiting, denies diarrhea. She has had nausea intermittently. Timing/Duration: other (For several weeks) Method of Injury: other (No injury) Quality: radiating, sharp Back Pain Location: paraspinous muscles (Side) Severity of Pain-Max: mild Severity of Pain-Current: mild Modifying Factors: Improves With: movement Associated Symptoms: nausea, No fever, No vomiting, No numbness in legs/feet, No muscle spasms Previous symptoms: same symptoms as today Allergies/Adverse Reactions: No Known Drug Allergies Allergy (Verified 07/06/20 00:20) Home Medications: Amoxicillin 500 mg Cap [Amoxil 500 mg] 1 tab PO Q8H 07/06/20 [History] Benzonatate 1 cap PO TID 07/06/20 [History] Hx Tetanus, Diphtheria Vaccination/Date Given: Yes Hx Influenza Vaccination/Date Given: No Hx Pneumococcal Vaccination/Date Given: No Travel Risk - International Travel Have you traveled outside of the country in past 3 weeks: No - Coronavirus Screening Are you exhibiting any of the following symptoms?: No Close contact with a COVID-19 positive Pt in past 14-21 Days: No - Review of Systems Constitutional: No Symptoms Eyes: No Symptoms Ears, Nose, & Throat: No Symptoms Respiratory: No Symptoms Cardiac: No Symptoms Abdominal/Gastrointestinal: No Symptoms Genitourinary Symptoms: No Symptoms Musculoskeletal: Back Pain (Left) Skin: No Symptoms Neurological: No Symptoms Psychological: No Symptoms Endocrine: No Symptoms Hematologic/Lymphatic: No Symptoms Immunological/Allergic: No Symptoms All Other Systems: Reviewed and Negative - Past Medical History Pertinent Past Medical History: Yes Neurological History: No Pertinent History ENT History: No Pertinent History Cardiac History: No Pertinent History Respiratory History: No Pertinent History Endocrine Medical History: No Pertinent History Musculoskeletal History: No Pertinent History GI Medical History: No Pertinent History History: No Pertinent History Psycho-Social History: Anxiety, Depression, Panic Disorder Female Reproductive Disorders: No Pertinent History Other Medical History: NONE; CURRENTLY NOT TAKING ANYTHING FOR PAIN. - Past Surgical History Past Surgical History: Yes Gastrointestinal: Cholecystectomy Female Surgical History: Section - Social History Smoking Status: Current every day smoker How long have you smoked: 10 years Exposure to second hand smoke: Yes Alcohol Use: Socially Drug Use: none Patient Lives Alone: No Significant Family History: no pertinent family hx - Female History Hx Now: No - Nursing Vital Signs Nursing Vital Signs: Initial Vital Signs Temperature 98.8 F 08/06/20 02:36 Pulse Rate 122 H 08/06/20 02:36 Respiratory Rate 28 H 08/06/20 02:36 Blood Pressure 132/98 08/06/20 02:36 O2 Sat by Pulse Oximetry 98 08/06/20 02:36 Pain Scale Pain Intensity 4 - Physical Exam General Appearance: no apparent distress, alert, anxiety, obese Eye Exam: PERRL/EOMI, eyes nml inspection Ears, Nose, Throat Exam: normal ENT inspection, moist mucous membranes Neck Exam: normal inspection, non-tender, supple, full range of motion Respiratory Exam: normal breath sounds, lungs clear, airway intact, No chest tenderness, No respiratory distress Cardiovascular Exam: regular rate/rhythm, normal heart sounds, normal peripheral pulses Gastrointestinal Exam: soft, normal bowel sounds, No tenderness Pelvic Exam: not done Rectal Exam: not done Extremity Exam: normal inspection, normal range of motion, pelvis stable Neurologic Exam: alert, oriented x 3, cooperative, microcomputer support specialist II-XII nml as tested, normal mood/affect, nml cerebellar function, nml station & gait, sensation nml Skin Exam: normal color, warm, dry Lymphatic Exam: No adenopathy SpO2 Interpretation: normal SpO2: 98 O2 Delivery: Room Air - Course Nursing assessment & vital signs reviewed: Yes Ordered Tests: Active Orders 24 hr Category Date Time Status HCG,QUALITATIVE URINE Stat Lab 08/06/20 02:29 Completed UA W/RFX UR CULTURE Stat Lab 08/06/20 02:30 Completed Medication Summary Generic Name Dose Route Start Last Admin Trade Name Chrisq PRN Reason Stop Dose Admin Ketorolac Tromethamine 60 mg 08/06/20 04:31 Toradol 30 Mg Injection IM 08/06/20 04:32 STAT ONE Orphenadrine Citrate 60 mg 08/06/20 04:31 Norflex 60 Mg/2 Ml IM 08/06/20 04:32 STAT ONE Discontinued Medications Generic Name Dose Route Start Last Admin Trade Name Freq PRN Reason Stop Dose Admin Ondansetron HCl 4 mg 08/06/20 03:34 08/06/20 03:37 Zofran Odt 4 Mg PO 08/06/20 03:35 4 mg STAT ONE Administration Ondansetron HCl Confirm 08/06/20 03:36 Zofran Odt 4 Mg Administered 08/06/20 03:37 Dose 4 mg .ROUTE .STK-MED ONE Lab/Rad Data: Laboratory Results 08/06/20 08/06/20 Range/Units 02:30 02:29 Urine Color YELLOW (YELLOW) Urine Appearance SLIGHTLY CLOUDY (CLEAR) Urine pH 5.0 (5-6) Ur Specific Parks 1.015 (1.005-1.025) Urine Protein NEGATIVE (Negative) Urine Ketones NEGATIVE (NEGATIVE) Urine Blood NEGATIVE (0-5) Harry/ul Urine Nitrite NEGATIVE (NEGATIVE) Urine Bilirubin NEGATIVE (NEGATIVE) Urine Urobilinogen NEGATIVE (0-1) mg/dL Ur Leukocyte Esterase NEGATIVE (NEGATIVE) Urine WBC (Auto) 3-5 (0-5) /HPF Urine RBC (Auto) NONE (0-2) /HPF U Epithel Cells (Auto) RARE (FEW) /HPF Urine Bacteria (Auto) NONE (NEGATIVE) /HPF Urine Mucus (Auto) SLIGHT (NEGATIVE) /HPF Urine Culture Reflexed NO (NO) Urine Glucose NEGATIVE (NEGATIVE) mg/dL Urine HCG, Qual NEGATIVE (Negative) - Progress Progress: unchanged, pain not gone completely, re-examined Counseled pt/family regarding: lab results, diagnosis, need for follow-up - Departure Departure Disposition: Home Clinical Impression: Back pain, Musculoskeletal pain Condition: Stable Critical Care Time: No Referrals: ANGELINA MEEKS [Primary Care Provider] - Additional Instructions: Drink plenty of fluids. Take your medication as prescribed. Follow-up with your primary care physician for further management. Prescriptions: Cyclobenzaprine HCl 10 mg [Cyclobenzaprine 10 MG] 10 mg PO TID #10 tablet Naproxen 500 mg [Naprosyn 500 MG] 500 mg PO BID #10 tablet
[2020-08-06 04:19] VITALS: BP 147/89; PULSE 97
[2020-08-06 04:19] LABS: Appearance SLIGHTLY CLOUDY (CLEAR); Bilirubin NEGATIVE (NEGATIVE); Blood NEGATIVE Ery/ul (0-5); Epithelial Cells RARE /HPF (FEW); Glucose NEGATIVE (NEGATIVE); Ketones NEGATIVE (NEGATIVE); Leukocyte Esterase NEGATIVE (NEGATIVE); Mucus SLIGHT /HPF (NEGATIVE); Nitrite NEGATIVE (NEGATIVE); Protein,Urine Dip NEGATIVE (Negative); Specific Gravity 1.015 (1.005-1.025); Urobilinogen NEGATIVE mg/dL (0-1)
[2020-08-06] MEDS ORDERED: Norflex 60 MG/2 ML IM ONE (04:31)
[2020-08-06] MEDS ORDERED: TORAdol 30 mg Injection IM ONE (04:31)
[2020-08-06 04:34] VITALS: O2SAT 98
[2020-08-06] MEDS ORDERED: Norflex 60 MG/2 ML ONE (04:35)
[2020-08-06] MEDS ORDERED: TORAdol 30 mg Injection ONE (04:35)
== END 2020-08-06 04:47 | disposition home or self-care (01) ==
LOC: ED 02:26
DX: M54.5 Low back pain (principal); M79.18 Myalgia, other site
CPT/HCPCS: 81001; 84703; 96372; 99284; J1885; J2360; Q0162

== ENCOUNTER 2020-11-21 21:56 | Emergency (ER) | payer OTHER ==
[2020-11-21 22:03] VITALS: BP 118/80; PULSE 102; O2SAT 98
--- NOTE | 2020-11-21 22:27 | ERPHSYRPT ---
- History of Present Illness Time Seen by Provider: 11/21/20 22:10 Source: patient Exam Limitations: no limitations Patient Subjective Stated Complaint: pt states, "I dyed my hair this morning around 1030 and noticed redness to back of my neck and swelling to lymph nodes i n neck area and itching around 1700". Triage Nursing Assessment: pt c/o redness, itching, swelling to back of neck which started around 1700 today. Pt states, "I dyed my hair around 1030 this morning. This happened to me one other time when I dyed my hair a dark color". Physician History: Patient is a 35-year-old female presents to our emergency department for evaluation of residual reactive lymphadenopathy at the base of her head Patient dyed her hair this morning at approximately 10:30 AM. Patient used a new dye product. Patient states shortly thereafter she began to experience a tingling sensation on her scalp which is unusual. She has dyed her hair in the past and never experienced this tingling sensation. Patient states symptoms continued. Symptoms worsen. Patient began to itch. At approximately 5 PM patient took a dose of Benadryl. Patient states the itchy sensation resolved. Patient is currently asymptomatic. However she can palpate reactive lymph nodes at the base of her head. The lymph nodes are nontender. Lymph nodes are subcentimeter. Patient denies shortness of breath. No wheezing. No intraoral lesions. No abdominal pain or cramping. Patient has no hives or pruritus. Patient is otherwise asymptomatic. Patient voices no other complaints or concerns at this time. Timing/Duration: today Severity: moderate Modifying Factors: Improves With: nothing Associated Symptoms: denies symptoms Allergies/Adverse Reactions: No Known Drug Allergies Allergy (Verified 11/21/20 22:09) Home Medications: Benzonatate 1 cap PO TID PRN PRN 07/06/20 [History] Glyburide 2.5 mg PO BID 11/21/20 [History] Hx Tetanus, Diphtheria Vaccination/Date Given: Yes Hx Influenza Vaccination/Date Given: No Hx Pneumococcal Vaccination/Date Given: No Immunizations Up to Date: Yes Travel Risk - International Travel Have you traveled outside of the country in past 3 weeks: No - Coronavirus Screening Are you exhibiting any of the following symptoms?: No Close contact with a COVID-19 positive Pt in past 14-21 Days: No - Review of Systems Constitutional: No Symptoms, No Fever, No Chills Eyes: No Symptoms Ears, Nose, & Throat: No Symptoms Respiratory: No Symptoms, No Cough, No Dyspnea Cardiac: No Symptoms, No Chest Pain, No Edema, No Syncope Abdominal/Gastrointestinal: No Symptoms, No Abdominal Pain, No Nausea, No Vomiting, No Diarrhea Genitourinary Symptoms: No Symptoms, No Dysuria Musculoskeletal: No Symptoms, No Back Pain, No Neck Pain Skin: No Symptoms, No Rash Neurological: No Symptoms, No Dizziness, No Focal Weakness, No Sensory Changes Psychological: No Symptoms Endocrine: No Symptoms Hematologic/Lymphatic: No Symptoms Immunological/Allergic: No Symptoms All Other Systems: Reviewed and Negative - Past Medical History Pertinent Past Medical History: Yes Neurological History: No Pertinent History ENT History: No Pertinent History Cardiac History: No Pertinent History Respiratory History: No Pertinent History Endocrine Medical History: No Pertinent History, Diabetes Type II Musculoskeletal History: No Pertinent History GI Medical History: No Pertinent History History: No Pertinent History Psycho-Social History: Anxiety, Depression, Panic Disorder Female Reproductive Disorders: No Pertinent History Other Medical History: NONE; CURRENTLY NOT TAKING ANYTHING FOR PAIN. - Past Surgical History Past Surgical History: Yes Gastrointestinal: Cholecystectomy Female Surgical History: Section - Social History Smoking Status: Current every day smoker How long have you smoked: 22 yrs Exposure to second hand smoke: Yes Alcohol Use: Socially Drug Use: none Patient Lives Alone: No Significant Family History: no pertinent family hx - Female History Hx Now: No - Nursing Vital Signs Nursing Vital Signs: Initial Vital Signs Temperature 98.4 F 11/21/20 22:02 Pulse Rate 102 H 11/21/20 22:02 Respiratory Rate 20 11/21/20 22:02 Blood Pressure 118/80 11/21/20 22:02 O2 Sat by Pulse Oximetry 98 11/21/20 22:02 Pain Scale Pain Intensity 0 - Physical Exam General Appearance: no apparent distress, alert Eye Exam: PERRL/EOMI, eyes nml inspection Ears, Nose, Throat Exam: normal ENT inspection, TMs normal, pharynx normal, moist mucous membranes Neck Exam: normal inspection, non-tender, supple, full range of motion Respiratory Exam: normal breath sounds, lungs clear, No respiratory distress Cardiovascular Exam: regular rate/rhythm, normal heart sounds, normal peripheral pulses Gastrointestinal/Abdomen Exam: soft, normal bowel sounds, No tenderness, No mass Back Exam: normal inspection, normal range of motion, No CVA tenderness, No vertebral tenderness Extremity Exam: normal inspection, normal range of motion, pelvis stable Neurologic Exam: alert, oriented x 3, cooperative, normal mood/affect, nml cerebellar function, nml station & gait, sensation nml, No motor deficits Skin Exam: normal color, warm, dry, No rash Lymphatic Exam: No adenopathy SpO2 Interpretation: normal SpO2: 98 O2 Delivery: Room Air - Course Nursing assessment & vital signs reviewed: Yes - Progress Progress: improved Progress Note: 11/21/20 22:27 Patient states that she has no symptomology of an allergic reaction. Patient's physical exam is nonremarkable. There are small subcentimeter lymph nodes at the base of her head towards the posterior posterior and posterior oral lateral aspect of her neck. Overlying soft tissue intact. No signs of trauma. No signs of infection. Lymphadenopathy is likely reactive. It is not infectious. Patient has no fevers. Patient's exposure was approximately 15 hours ago. Patient has been symptom-free for approximately 5 and half hours. Patient symptoms resolved after administration of a total of 2 doses of Benadryl. Patient's last Benadryl dose was approximately 5 hours ago. At this point there is no indication for further evaluation and treatment. The lymphadenopathy which is what brought patient to our ED is likely reactive and not infectious. I think we should just monitor the lymph adenopathy. Patient agrees to follow- up with her primary care doctor within 48 hours. If her lymphadenopathy worsens if she patient develops any shortness of breath pruritus fevers or any concerning symptoms patient understands return to our ED for an evaluation. Will discharge patient at this time. No indication for further work-up at this time. Will discharge home. We will write a prescription for EpiPen in the event that symptoms acutely worsen which I feel would be unlikely. Counseled pt/family regarding: diagnosis, need for follow-up - Departure Departure Disposition: Home Clinical Impression: Reactive lymphadenopathy, Allergic reaction Condition: Stable Critical Care Time: No Referrals: ANGELINA MEEKS [Primary Care Provider] - Additional Instructions: Discharge/Care Plan LMAONT LONDONO was seen on 11/21/20 in the Emergency Room. The patient was counseled regarding Diagnosis,Lab results, Imaging studies, need for follow up and when to return to the Emergency Room. Prescriptions given: Discharge Note I have spoken with the patient and/or caregivers. I have explained the patient's condition, diagnosis and treatment plan based on the information available to me at this time. I have answered the patient's and/or caregiver's questions and addressed any concerns. The patient and/or caregivers have as good understanding of the patient's diagnosis, condition and treatment plan as can be expected at this point. The vital signs have been stable. The patient's condition is stable and appropriate for discharge from the emergency department. The patient will pursue further outpatient evaluation with the primary care physician or other designated or consulting physician as outlined in the discharge instructions. The patient and/or caregivers are agreeable to this plan of care and follow-up instructions have been explained in detail. The patient and/or caregivers have received these instruction. The patient/and or caregivers are aware that any significant change in condition or worsening of symptoms should prompt an immediate return to this or the closest emergency department or call 911. Prescriptions: Epinephrine [Epipen] 0.3 mg IM DAILY #2 ml
== END 2020-11-21 22:44 | disposition home or self-care (01) ==
LOC: ED 21:56
DX: R59.1 Generalized enlarged lymph nodes (principal); T78.40XA Allergy, unspecified, initial encounter
CPT/HCPCS: 99283

== ENCOUNTER 2021-07-28 20:25 | Emergency (ER) | payer OTHER ==
--- NOTE | 2021-07-28 21:06 | ERPHSYRPT ---
- History of Present Illness Time Seen by Provider: 07/28/21 21:01 Source: patient Exam Limitations: no limitations Patient Subjective Stated Complaint: "My ear started bleeding." Triage Nursing Assessment: Patient reported acute onset bleeding to the left ear. She denied any injury/trauma. Reported that she felt dried blood and put a q-tip in her ear which was then covered in blood. Denied any hearing trouble or tinnitus. Right EAC with mild cerumen. Right TM rodriguez with positive cone of light and intact landmarks. Left EAC with mild bleeding and scratch to the canal noted. Left TM intact, rodriguez, and with positive cone of light and landmarks. Physician History: pt noted left ear bleeding and put Q tip in and bled more. no other symptoms, no blood thinner or blood dyscrasias known. No toher areas of bleeding or bruising. no resp or ear symptoms otherwise. exam shows excoriated left ear canal with hemostasis achieved, no FB, but cannot exclude. TMs normal bilaterally. discussed need for ENT refer with pt to rule out pathology and to rule out retained FB, and she voices understanding. normal neuro. no hx traumna. Allergies/Adverse Reactions: No Known Drug Allergies Allergy (Verified 07/28/21 20:29) Home Medications: Glyburide 2.5 mg PO BID 11/21/20 [History] Montelukast Sodium 10 mg [Singulair 10 MG] 10 mg PO BID 07/28/21 [History] Venlafaxine HCl [Venlafaxine HCl ER] 150 mg PO DAILY 07/28/21 [History] Hx Tetanus, Diphtheria Vaccination/Date Given: Yes Hx Influenza Vaccination/Date Given: No Hx Pneumococcal Vaccination/Date Given: No Travel Risk - International Travel Have you traveled outside of the country in past 3 weeks: No - Coronavirus Screening Are you exhibiting any of the following symptoms?: No Close contact with a COVID-19 positive Pt in past 14-21 Days: No - Vaccine Status Have you recieved a Covid-19 vaccination: No - Review of Systems Constitutional: No Symptoms Eyes: No Symptoms Ears, Nose, & Throat: Ear Pain, Other (left ear bleeding) Respiratory: No Symptoms Cardiac: No Symptoms Abdominal/Gastrointestinal: No Symptoms Genitourinary Symptoms: No Symptoms Musculoskeletal: No Symptoms Skin: No Symptoms Neurological: No Symptoms Psychological: No Symptoms Endocrine: No Symptoms Hematologic/Lymphatic: No Symptoms Immunological/Allergic: No Symptoms - Past Medical History Pertinent Past Medical History: Yes Neurological History: No Pertinent History ENT History: No Pertinent History Cardiac History: No Pertinent History Respiratory History: No Pertinent History Endocrine Medical History: No Pertinent History, Diabetes Type II Musculoskeletal History: No Pertinent History GI Medical History: No Pertinent History History: No Pertinent History Psycho-Social History: Anxiety, Depression, Panic Disorder Female Reproductive Disorders: No Pertinent History Other Medical History: NONE; CURRENTLY NOT TAKING ANYTHING FOR PAIN. - Past Surgical History Past Surgical History: Yes Gastrointestinal: Cholecystectomy Female Surgical History: Section - Social History Smoking Status: Current every day smoker How long have you smoked: 22 yrs Exposure to second hand smoke: Yes Alcohol Use: Socially Drug Use: none Patient Lives Alone: No Significant Family History: no pertinent family hx - Female History Hx Now: No - Nursing Vital Signs Nursing Vital Signs: Initial Vital Signs Temperature 98 F 07/28/21 20:25 Pulse Rate 98 H 07/28/21 20:25 Respiratory Rate 16 07/28/21 20:25 Blood Pressure 140/90 07/28/21 20:25 O2 Sat by Pulse Oximetry 98 07/28/21 20:25 Pain Scale Pain Intensity 0 - Physical Exam General Appearance: no apparent distress, alert Eye Exam: bilateral eye: normal inspection, PERRL, EOMI Ear Exam: right ear: auricle normal, canal normal, left ear: bleeding, discharge, erythema, tenderness, bilateral ear: TM normal Nasal Exam: normal inspection Throat Exam: pharynx normal, moist mucus membranes, No tonsillar exudate Neck Exam: normal inspection, non-tender, supple, full range of motion, trachea midline Cardiovascular/Respiratory Exam: normal breath sounds, regular rate/rhythm Abdominal Exam: non-tender, soft Neurologic Exam: alert, oriented x 3, cooperative, softlines supervisor II-XII nml as tested, nml cerebellar function, nml station & gait, sensation nml, No motor deficits Skin Exam: normal color, warm, dry SpO2 Interpretation: normal SpO2: 98 O2 Delivery: Room Air - Course Nursing assessment & vital signs reviewed: Yes - Progress Progress: improved, re-examined Counseled pt/family regarding: diagnosis, need for follow-up - Departure Departure Disposition: Home Clinical Impression: Left otitis externa, Abrasion of left ear canal Condition: Good Critical Care Time: No Referrals: ANGELINA MEEKS NP [Primary Care Provider] - Follow up/PCP as directed Instructions: Outer Ear Infection (DC) Additional Instructions: there is irritation in the ear canal which may be infection and could have been a factor in the bleeding. we are giving drops to help heal, but it is important to see an learning support services director to recheck for any retained foreign material which may have also caused this , and for any area not healing which can be a form of growth or very rarely cancer ( but these are very treatable). Return meantime if further bleeding or other concerns. follow-up your blood pressure with your Dr. to recheck and consider treatment if indicated. Prescriptions: Quan/Baci/Poly/Hc Ear Susp [Cortisporin Ear Drops 10 ml Suspension] 1 ml OT TID #10 ml
[2021-07-28] MEDS ORDERED: CORTISPORIN EAR DROPS 10 ML SUSPENSION OT ONE ×2 (21:16→21:17)
[2021-07-28 21:22] VITALS: BP 119/87; PULSE 88; O2SAT 97
== END 2021-07-28 21:25 | disposition home or self-care (01) ==
LOC: ED 20:25
DX: H60.92 Unspecified otitis externa, left ear (principal); S00.412A Abrasion of left ear, initial encounter; E11.8 Type 2 diabetes mellitus with unspecified complications; Z79.84 Long term (current) use of oral hypoglycemic drugs; Z72.0 Tobacco use
CPT/HCPCS: 99283; A9270-GY

== ENCOUNTER 2021-11-06 21:23 | Emergency (ER) | payer OTHER ==
--- NOTE | 2021-11-06 21:44 | ERPHSYRPT ---
- History of Present Illness Time Seen by Provider: 11/06/21 21:43 Source: patient Exam Limitations: no limitations Physician History: This is a 36-year-old obese white female patient of nurse practitioner Darian who has a history of asthma, [id number]-gthssjerz diabetes, anxiety/panic disorder and smokes daily. In the last 2 to 3 days she has had flulike symptoms inc luding nausea and cough. She began having some vomiting today which then turned into nosebleed. Patient came in because she was concerned about the amount of blood from her nose bilaterally. Patient denies any bleeding disorders or clotting disorders. She is not on any anticoagulation therapy. She has no liver disease. She did not pick her nose or suffer any nasal trauma per her report. ENT Location: nose Prearrival Treatment: no prearrival treatment Modifying Factors: Improves With: coughing Associated Symptoms: cough, epistaxis Allergies/Adverse Reactions: No Known Drug Allergies Allergy (Verified 07/28/21 20:29) Home Medications: glyBURIDE [Glyburide] 2.5 mg PO BID 11/21/20 [History] Montelukast Sodium 10 mg [Singulair 10 MG] 10 mg PO BID 07/28/21 [History] Venlafaxine HCl [Venlafaxine HCl ER] 150 mg PO DAILY 07/28/21 [History] Hx Tetanus, Diphtheria Vaccination/Date Given: Yes Hx Influenza Vaccination/Date Given: No Hx Pneumococcal Vaccination/Date Given: No Travel Risk - International Travel Have you traveled outside of the country in past 3 weeks: No - Coronavirus Screening Are you exhibiting any of the following symptoms?: No Close contact with a COVID-19 positive Pt in past 14-21 Days: No - Vaccine Status Have you recieved a Covid-19 vaccination: No - Review of Systems Constitutional: No Symptoms Eyes: No Symptoms Ears, Nose, & Throat: Epistaxis Respiratory: Cough, No Dyspnea Cardiac: No Symptoms Abdominal/Gastrointestinal: Nausea, Vomiting, No Abdominal Pain, No Diarrhea Genitourinary Symptoms: No Symptoms Musculoskeletal: No Symptoms Skin: No Symptoms Neurological: No Symptoms Psychological: No Symptoms Endocrine: No Symptoms Hematologic/Lymphatic: No Symptoms Immunological/Allergic: No Symptoms All Other Systems: Reviewed and Negative - Past Medical History Pertinent Past Medical History: Yes Neurological History: No Pertinent History ENT History: No Pertinent History Cardiac History: No Pertinent History Respiratory History: No Pertinent History Endocrine Medical History: No Pertinent History, Diabetes Type II Musculoskeletal History: No Pertinent History GI Medical History: No Pertinent History History: No Pertinent History Psycho-Social History: Anxiety, Depression, Panic Disorder Female Reproductive Disorders: No Pertinent History Other Medical History: NONE; CURRENTLY NOT TAKING ANYTHING FOR PAIN. - Past Surgical History Past Surgical History: Yes Gastrointestinal: Cholecystectomy Female Surgical History: Section - Social History Smoking Status: Current every day smoker How long have you smoked: 22 yrs Exposure to second hand smoke: Yes Alcohol Use: Socially Drug Use: none Patient Lives Alone: No Significant Family History: no pertinent family hx - Nursing Vital Signs Nursing Vital Signs: Initial Vital Signs Temperature 97.8 F 11/06/21 21:51 Pulse Rate 132 H 11/06/21 21:51 Respiratory Rate 20 11/06/21 21:51 Blood Pressure 132/96 11/06/21 21:51 O2 Sat by Pulse Oximetry 97 11/06/21 21:51 Pain Scale Pain Intensity 0 - Physical Exam General Appearance: mild distress, alert, anxiety, obese Eye Exam: bilateral eye: normal inspection, PERRL, EOMI Ear Exam: bilateral ear: auricle normal, canal normal, TM normal Nasal Exam: dried blood (No active bleeding from any nasal opening.) Throat Exam: normal, pharynx normal, No dental tenderness Neck Exam: normal inspection, non-tender, supple, full range of motion, trachea midline Cardiovascular/Respiratory Exam: chest non-tender, no respiratory distress Abdominal Exam: non-tender Neurologic Exam: alert, oriented x 3, cooperative, art psychotherapist or therapist II-XII nml as tested, normal mood/affect, nml cerebellar function, nml station & gait, sensation nml Skin Exam: normal color, warm, dry SpO2 Interpretation: normal O2 Delivery: Room Air - Course Nursing assessment & vital signs reviewed: Yes Ordered Tests: Active Orders 24 hr Category Date Time Status IV Insertion STAT Care 11/06/21 22:19 Active CHEST 1 VIEW (PORTABLE) Stat Exams 11/06/21 23:02 Taken CBC W DIFF Stat Lab 11/06/21 22:25 Completed CMP Stat Lab 11/06/21 22:25 Completed COVID AG-BINAX NOW RAPID TEST Stat Lab 11/06/21 22:51 Completed CULTURE,URINE Stat Lab 11/06/21 23:56 Received INFLUENZA A+B SATISH Stat Lab 11/06/21 22:51 Completed Lactic Acid Stat Lab 11/06/21 22:20 Completed Lactic Acid Stat Lab 11/07/21 00:29 Received Tripp Screen Stat Lab 11/06/21 22:25 Completed POCT GLUCOSE Stat Lab 11/06/21 21:45 Completed PROTIME WITH INR Stat Lab 11/06/21 22:25 Completed UA W/RFX UR CULTURE Stat Lab 11/06/21 23:56 Completed Medication Summary Discontinued Medications Generic Name Dose Route Start Last Admin Trade Name Chelsea PRN Reason Stop Dose Admin Sodium Chloride 1,000 mls @ 999 mls/hr 11/06/21 22:19 11/06/21 23:39 Sodium Chloride 0.9% 1000 Ml IV 11/06/21 23:19 Infused .Q1H1M STA Infusion Sodium Chloride Confirm 11/06/21 22:32 Sodium Chloride 0.9% 1000 Ml Administered 11/06/21 22:33 Dose 1,000 mls @ ud .ROUTE .STK-MED ONE Ondansetron HCl 4 mg 11/06/21 22:05 11/06/21 22:08 Zofran 4 Mg/Udtablet Orally Disintegrating PO 11/06/21 22:06 Not Given STAT ONE Ondansetron HCl Confirm 11/06/21 22:04 Zofran 4 Mg/Udtablet Orally Disintegrating Administered 11/06/21 22:05 Dose 4 mg .ROUTE .STK-MED ONE Phenylephrine HCl 15 ml 11/06/21 22:53 11/06/21 22:55 Neosynephrine 0.5% Nasal [place]/Drops NS 11/06/21 22:54 15 ml STAT ONE Administration Phenylephrine HCl Confirm 11/06/21 22:55 Neosynephrine 0.5% Nasal [place]/Drops Administered 11/06/21 22:56 Dose 15 ml .ROUTE .STK-MED ONE Prochlorperazine Edisylate 5 mg 11/06/21 22:21 11/06/21 22:35 Prochlorperazine Edisylate 10 Mg/2 Ml Vial IV 11/06/21 22:22 5 mg STAT ONE Administration Prochlorperazine Edisylate Confirm 11/06/21 22:32 Prochlorperazine Edisylate 10 Mg/2 Ml Vial Administered 03/08/22 22:33 Dose 10 mg .ROUTE .STK-MED ONE Lab/Rad Data: Laboratory Result Diagrams 11/06/21 22:25 11/06/21 22:25 Laboratory Results 11/06/21 11/06/21 11/06/21 Range/Units 23:56 22:51 22:51 WBC (4.0-10.5) K/mm3 RBC (4.1-5.4) M/mm3 Hgb (12.0-16.0) gm/dl Hct (35-47) % MCV (78-100) fl MCH (26-32) pg MCHC (32-36) g/dl RDW (11.5-14.0) % Plt Count (150-450) K/mm3 MPV (7.5-11.0) fl Gran % (36.0-66.0) % Eos # (Auto) (0-0.5) Absolute Lymphs (auto) (1.0-4.6) Absolute Monos (auto) (0.0-1.3) Lymphocytes % (24.0-44.0) % Monocytes % (0.0-12.0) % Eosinophils % (0.00-5.0) % Basophils % (0.0-0.4) % Absolute Granulocytes (1.4-6.9) Basophils # (0-0.4) PT (9.4-12.5) SECONDS INR (0.8-3.0) Sodium (137-145) mmol/L Potassium (3.5-5.1) mmol/L Chloride (98-107) mmol/L Carbon Dioxide (22-30) mmol/L Anion Gap (5-15) MEQ/L BUN (7-17) mg/dL Creatinine (0.52-1.04) mg/dL Estimated GFR ML/MIN Glucose (74-106) mg/dL POC Glucometer (74 to 106) mg/dL Lactic Acid (0.4-2.0) Calcium (8.4-10.2) mg/dL Total Bilirubin (0.2-1.3) mg/dL AST (14-36) U/L ALT (0-35) U/L Alkaline Phosphatase (38-126) U/L Serum Total Protein (6.3-8.2) g/dL Albumin (3.5-5.0) g/dL Urine Color RED (YELLOW) Urine Appearance CLOUDY (CLEAR) Urine pH 5.0 (5-6) Ur Specific [place] 1.024 (1.005-1.025) Urine Protein 100 (Negative) Urine Ketones NEGATIVE (NEGATIVE) Urine Blood LARGE (0-5) Harry/ul Urine Nitrite NEGATIVE (NEGATIVE) Urine Bilirubin NEGATIVE (NEGATIVE) Urine Urobilinogen 4 (0-1) mg/dL Ur Leukocyte Esterase NEGATIVE (NEGATIVE) Urine WBC (Auto) 3-5 (0-5) /HPF Urine RBC (Auto) >101 (0-2) /HPF U Epithel Cells (Auto) MODERATE (FEW) /HPF Urine Bacteria (Auto) NONE SEEN (NEGATIVE) /HPF Urine Mucus (Auto) SLIGHT (NEGATIVE) /HPF Urine Culture Reflexed YES (NO) Urine Glucose NEGATIVE (NEGATIVE) mg/dL Monoscreen (Negative) Influenza Type A Ag (NEGATIVE) Influenza Type B Ag (NEGATIVE) SARS-CoV-2 Ag (Rapid) NEGATIVE (NEGATIVE) Group A Strep Antibody NOT DETECTED (NEGATIVE) 11/06/21 11/06/21 11/06/21 Range/Units 22:51 22:25 22:25 WBC (4.0-10.5) K/mm3 RBC (4.1-5.4) M/mm3 Hgb (12.0-16.0) gm/dl Hct (35-47) % MCV (78-100) fl MCH (26-32) pg MCHC (32-36) g/dl RDW (11.5-14.0) % Plt Count (150-450) K/mm3 MPV (7.5-11.0) fl Gran % (36.0-66.0) % Eos # (Auto) (0-0.5) Absolute Lymphs (auto) (1.0-4.6) Absolute Monos (auto) (0.0-1.3) Lymphocytes % (24.0-44.0) % Monocytes % (0.0-12.0) % Eosinophils % (0.00-5.0) % Basophils % (0.0-0.4) % Absolute Granulocytes (1.4-6.9) Basophils # (0-0.4) PT 13.4 H (9.4-12.5) SECONDS INR 1.14 (0.8-3.0) Sodium (137-145) mmol/L Potassium (3.5-5.1) mmol/L Chloride (98-107) mmol/L Carbon Dioxide (22-30) mmol/L Anion Gap (5-15) MEQ/L BUN (7-17) mg/dL Creatinine (0.52-1.04) mg/dL Estimated GFR ML/MIN Glucose (74-106) mg/dL POC Glucometer (74 to 106) mg/dL Lactic Acid (0.4-2.0) Calcium (8.4-10.2) mg/dL Total Bilirubin (0.2-1.3) mg/dL AST (14-36) U/L ALT (0-35) U/L Alkaline Phosphatase (38-126) U/L Serum Total Protein (6.3-8.2) g/dL Albumin (3.5-5.0) g/dL Urine Color (YELLOW) Urine Appearance (CLEAR) Urine pH (5-6) Ur Specific [place] (1.005-1.025) Urine Protein (Negative) Urine Ketones (NEGATIVE) Urine Blood (0-5) Harry/ul Urine Nitrite (NEGATIVE) Urine Bilirubin (NEGATIVE) Urine Urobilinogen (0-1) mg/dL Ur Leukocyte Esterase (NEGATIVE) Urine WBC (Auto) (0-5) /HPF Urine RBC (Auto) (0-2) /HPF U Epithel Cells (Auto) (FEW) /HPF Urine Bacteria (Auto) (NEGATIVE) /HPF Urine Mucus (Auto) (NEGATIVE) /HPF Urine Culture Reflexed (NO) Urine Glucose (NEGATIVE) mg/dL Monoscreen NEGATIVE (Negative) Influenza Type A Ag NEGATIVE (NEGATIVE) Influenza Type B Ag NEGATIVE (NEGATIVE) SARS-CoV-2 Ag (Rapid) (NEGATIVE) Group A Strep Antibody (NEGATIVE) 11/06/21 11/06/21 11/06/21 Range/Units 22:25 22:25 22:20 WBC 8.2 (4.0-10.5) K/mm3 RBC 4.15 (4.1-5.4) M/mm3 Hgb 14.1 (12.0-16.0) gm/dl Hct 42.3 (35-47) % MCV 101.9 H (78-100) fl MCH 34.0 H (26-32) pg MCHC 33.3 (32-36) g/dl RDW 13.6 (11.5-14.0) % Plt Count 210 (150-450) K/mm3 MPV 11.0 (7.5-11.0) fl Gran % 66.3 H (36.0-66.0) % Eos # (Auto) 0.30 (0-0.5) Absolute Lymphs (auto) 1.73 (1.0-4.6) Absolute Monos (auto) 0.74 (0.0-1.3) Lymphocytes % 21.0 L (24.0-44.0) % Monocytes % 9.0 (0.0-12.0) % Eosinophils % 3.6 (0.00-5.0) % Basophils % 0.1 (0.0-0.4) % Absolute Granulocytes 5.46 (1.4-6.9) Basophils # 0.01 (0-0.4) PT (9.4-12.5) SECONDS INR (0.8-3.0) Sodium 136 L (137-145) mmol/L Potassium 4.1 (3.5-5.1) mmol/L Chloride 104 (98-107) mmol/L Carbon Dioxide 25 (22-30) mmol/L Anion Gap 11.5 (5-15) MEQ/L BUN 10 (7-17) mg/dL Creatinine 0.81 (0.52-1.04) mg/dL Estimated GFR > 60.0 ML/MIN Glucose 101 (74-106) mg/dL POC Glucometer (74 to 106) mg/dL Lactic Acid 2.0 (0.4-2.0) Calcium 8.6 (8.4-10.2) mg/dL Total Bilirubin 0.50 (0.2-1.3) mg/dL AST 30 (14-36) U/L ALT 24 (0-35) U/L Alkaline Phosphatase 58 (38-126) U/L Serum Total Protein 8.1 (6.3-8.2) g/dL Albumin 4.3 (3.5-5.0) g/dL Urine Color (YELLOW) Urine Appearance (CLEAR) Urine pH (5-6) Ur Specific [place] (1.005-1.025) Urine Protein (Negative) Urine Ketones (NEGATIVE) Urine Blood (0-5) Harry/ul Urine Nitrite (NEGATIVE) Urine Bilirubin (NEGATIVE) Urine Urobilinogen (0-1) mg/dL Ur Leukocyte Esterase (NEGATIVE) Urine WBC (Auto) (0-5) /HPF Urine RBC (Auto) (0-2) /HPF U Epithel Cells (Auto) (FEW) /HPF Urine Bacteria (Auto) (NEGATIVE) /HPF Urine Mucus (Auto) (NEGATIVE) /HPF Urine Culture Reflexed (NO) Urine Glucose (NEGATIVE) mg/dL Monoscreen (Negative) Influenza Type A Ag (NEGATIVE) Influenza Type B Ag (NEGATIVE) SARS-CoV-2 Ag (Rapid) (NEGATIVE) Group A Strep Antibody (NEGATIVE) 11/06/21 Range/Units 21:45 WBC (4.0-10.5) K/mm3 RBC (4.1-5.4) M/mm3 Hgb (12.0-16.0) gm/dl Hct (35-47) % MCV (78-100) fl MCH (26-32) pg MCHC (32-36) g/dl RDW (11.5-14.0) % Plt Count (150-450) K/mm3 MPV (7.5-11.0) fl Gran % (36.0-66.0) % Eos # (Auto) (0-0.5) Absolute Lymphs (auto) (1.0-4.6) Absolute Monos (auto) (0.0-1.3) Lymphocytes % (24.0-44.0) % Monocytes % (0.0-12.0) % Eosinophils % (0.00-5.0) % Basophils % (0.0-0.4) % Absolute Granulocytes (1.4-6.9) Basophils # (0-0.4) PT (9.4-12.5) SECONDS INR (0.8-3.0) Sodium (137-145) mmol/L Potassium (3.5-5.1) mmol/L Chloride (98-107) mmol/L Carbon Dioxide (22-30) mmol/L Anion Gap (5-15) MEQ/L BUN (7-17) mg/dL Creatinine (0.52-1.04) mg/dL Estimated GFR ML/MIN Glucose (74-106) mg/dL POC Glucometer 114 H (74 to 106) mg/dL Lactic Acid (0.4-2.0) Calcium (8.4-10.2) mg/dL Total Bilirubin (0.2-1.3) mg/dL AST (14-36) U/L ALT (0-35) U/L Alkaline Phosphatase (38-126) U/L Serum Total Protein (6.3-8.2) g/dL Albumin (3.5-5.0) g/dL Urine Color (YELLOW) Urine Appearance (CLEAR) Urine pH (5-6) Ur Specific [place] (1.005-1.025) Urine Protein (Negative) Urine Ketones (NEGATIVE) Urine Blood (0-5) Harry/ul Urine Nitrite (NEGATIVE) Urine Bilirubin (NEGATIVE) Urine Urobilinogen (0-1) mg/dL Ur Leukocyte Esterase (NEGATIVE) Urine WBC (Auto) (0-5) /HPF Urine RBC (Auto) (0-2) /HPF U Epithel Cells (Auto) (FEW) /HPF Urine Bacteria (Auto) (NEGATIVE) /HPF Urine Mucus (Auto) (NEGATIVE) /HPF Urine Culture Reflexed (NO) Urine Glucose (NEGATIVE) mg/dL Monoscreen (Negative) Influenza Type A Ag (NEGATIVE) Influenza Type B Ag (NEGATIVE) SARS-CoV-2 Ag (Rapid) (NEGATIVE) Group A Strep Antibody (NEGATIVE) - Progress Progress: improved, re-examined Progress Note: 11/07/21 00:31 Chest x-ray shows no acute cardiopulmonary process Counseled pt/family regarding: lab results, diagnosis, need for follow-up, rad results - Departure Departure Disposition: Home Clinical Impression: Epistaxis, Cough, Bronchitis Condition: Stable Critical Care Time: No Referrals: ANGELINA MEEKS NP [Primary Care Provider] - Follow up/PCP as directed Additional Instructions: Drink plenty of fluids. Take your medication as prescribed. Follow-up with your primary care physician for further management. Use the nasal drops and nasal clip if nasal bleed recurs. Prescriptions: Hydrocodone/Acetaminophen [Hydrocodone-Acetamn 7.5-325/15] 10 ml PO Q8H PRN PRN #120 ml MDD 30 mL PRN Reason: Cough Prednisone 10 mg [Deltasone 10 mg] 10 mg PO TID #12 tablet
[2021-11-06] MEDS ORDERED: ZOFRAN ODT 4 MG ONE (22:04)
[2021-11-06] MEDS: ZOFRAN ODT 4 MG PO ONE (22:08)
[2021-11-06] MEDS ORDERED: Compazine 10 MG/2 ML ONE (22:32)
[2021-11-06] MEDS ORDERED: Sodium Chloride 0.9% 1000 ML 1,000 ML ONE (22:32)
[2021-11-06] MEDS: Sodium Chloride 0.9% 1000 ML 1,000 ML IV STA (22:35)
[2021-11-06] MEDS: Compazine 10 MG/2 ML IV ONE (22:35)
[2021-11-06 22:45] LABS: Absolute Neutrophil Ct (ANC) 5.46 (1.4-6.9); Basophil (Absolute #) 0.01 (0-0.4); Eosinophil % 3.6 % (0.00-5.0); Hematocrit 42.3 % (35-47); Hemoglobin 14.1 gm/dl (12.0-16.0); Lymphocyte (Absolute #) 1.73 (1.0-4.6); Mean Cell Volume 101.9 fl (78-100); Mean Corpuscular Hgb Concent. 33.3 g/dl (32-36); Monocyte (Absolute #) 0.74 (0.0-1.3); Neutrophil % 66.3 % (36.0-66.0); Platelet Count 210 K/mm3 (150-450); Red Blood Count 4.15 M/mm3 (4.1-5.4); Red Cell Distribution Width 13.6 % (11.5-14.0); White Blood Count 8.2 K/mm3 (4.0-10.5)
[2021-11-06 22:55] LABS: INR 1.14 (0.8-3.0); PROTIME 13.4 SECONDS (9.4-12.5)
[2021-11-06] MEDS ORDERED: NEOSYNEPHRINE 0.5% NASAL SPRAY/DROPS ONE (22:55)
[2021-11-06] MEDS: NEOSYNEPHRINE 0.5% NASAL SPRAY/DROPS NS ONE (22:55)
[2021-11-06 23:05] LABS: ALBUMIN 4.3 g/dL (3.5-5.0); ALKALINE PHOSPHATASE 58 U/L (38-126); ANION GAP 11.5 MEQ/L (5-15); BLOOD UREA NITROGEN 10 mg/dL (7-17); CHLORIDE 104 mmol/L (98-107); Calcium 8.6 mg/dL (8.4-10.2); Carbon Dioxide 25 mmol/L (22-30); Creatinine 1 0.81 mg/dL (0.52-1.04); EST GLOMERULAR FILTRATION RATE > 60.0 ML/MIN; Glucose 101 mg/dL (74-106); Potassium 4.1 mmol/L (3.5-5.1); SGOT/AST 30 U/L (14-36); SGPT/ALT 24 U/L (0-35); SODIUM 136 mmol/L (137-145); Total Protein 8.1 g/dL (6.3-8.2)
[2021-11-06 23:29] LABS: COVID AG -BINAX NOW RAPID TEST NEGATIVE (NEGATIVE); INFLUENZA A NEGATIVE (NEGATIVE); INFLUENZA B NEGATIVE (NEGATIVE)
[2021-11-07 00:05] LABS: Appearance CLOUDY (CLEAR); Bacteria NONE SEEN /HPF (NEGATIVE); Bilirubin NEGATIVE (NEGATIVE); Blood LARGE Ery/ul (0-5); Epithelial Cells MODERATE /HPF (FEW); Glucose NEGATIVE (NEGATIVE); Ketones NEGATIVE (NEGATIVE); Leukocyte Esterase NEGATIVE (NEGATIVE); Mucus SLIGHT /HPF (NEGATIVE); Nitrite NEGATIVE (NEGATIVE); Protein,Urine Dip 100 (Negative); RBC >101 /HPF (0-2); Specific Gravity 1.024 (1.005-1.025); Urobilinogen 4 mg/dL (0-1)
[2021-11-07] MEDS: HYDROCODONE-ACETAMIN 2.5-108/5 ML SOLUTION PO STA (00:56)
[2021-11-07] MEDS: solu-MEDROL 125 MG, Sterile H2O 10 ml 2 ML IV ONE ×2 (00:57)
[2021-11-07 00:59] VITALS: BP 121/74; PULSE 101; O2SAT 96
--- NOTE | 2021-11-07 08:49 | XRAY ---
Indication: Fever and cough. Suspect Covid 19. Comparison: May 23, 2019. Portable apical lordotic chest remains clear. Heart not enlarged. Bony thorax intact. No new/acute findings.
== END 2021-11-07 01:03 | disposition home or self-care (01) ==
LOC: ED 21:23
DX: R04.0 Epistaxis (principal); J20.9 Acute bronchitis, unspecified; Z72.0 Tobacco use; R05.1 Acute cough; R11.2 Nausea with vomiting, unspecified; F41.9 Anxiety disorder, unspecified; E11.9 Type 2 diabetes mellitus without complications; Z79.84 Long term (current) use of oral hypoglycemic drugs; Z79.891 Long term (current) use of opiate analgesic; Z79.52 Long term (current) use of systemic steroids
CPT/HCPCS: 36000; 36415; 71045; 80053; 81001; 82947; 83605; 85025; 85610; 86308; 87086; 87400; 87651; 96360; 99000; 99284; Q0162; A9270-GY

== ENCOUNTER 2022-10-06 19:43 | Emergency (ER) | payer OTHER ==
--- NOTE | 2022-10-06 19:49 | ERPHSYRPT ---
- History of Present Illness Time Seen by Provider: 10/06/22 19:49 Source: patient Exam Limitations: no limitations Physician History: This is a 37-year-old obese white female who presents with complaints of fever and vomiting that occurred yesterday which have now resolved. Today, she feels more fatigue, has a cough and sore throat. She has not had any vomiting or diarrhea today. She has been exposed to individuals in her family that have the same symptoms. Patient is a daily smoker of cigarettes. She is a fvj-uutgtyc-xwjnqkonz diabetic with asthma and has a history of anxiety and panic disorder. She denies chest pain. She denies shortness of breath and she denies abdominal pain. Timing/Duration: yesterday Cough Quality/Degree: mild, dry cough Possible Cause: occasional episodes Modifying Factors: Improves With: coughing Associated Symptoms: fever, cough (Today), muscle aches (Today), sore throat, No chest pain/soreness (Yesterday), No shortness of breath Allergies/Adverse Reactions: No Known Drug Allergies Allergy (Verified 10/06/22 20:22) Home Medications: glyBURIDE [Glyburide] 2.5 mg PO BID 11/21/20 [History] Montelukast Sodium 10 mg [Singulair 10 MG] 10 mg PO BID 07/28/21 [History] Venlafaxine HCl [Venlafaxine HCl ER] 150 mg PO DAILY 07/28/21 [History] Hx Tetanus, Diphtheria Vaccination/Date Given: Yes Hx Influenza Vaccination/Date Given: No Hx Pneumococcal Vaccination/Date Given: No Travel Risk - International Travel Have you traveled outside of the country in past 3 weeks: No - Coronavirus Screening Are you exhibiting any of the following symptoms?: Yes Symptoms: Fever, Cough: New Onset, Vomiting/Diarrhea, Headaches/Body Aches/Fatigue Close contact with a COVID-19 positive Pt in past 14-21 Days: No - Vaccine Status Have you recieved a Covid-19 vaccination: No - Review of Systems Constitutional: Fever, Weakness Eyes: No Symptoms Ears, Nose, & Throat: Throat Pain Respiratory: Cough Cardiac: No Symptoms Abdominal/Gastrointestinal: No Symptoms Genitourinary Symptoms: No Symptoms Musculoskeletal: Arthralgias, Myalgias Skin: No Symptoms Neurological: No Symptoms Psychological: No Symptoms Endocrine: No Symptoms Hematologic/Lymphatic: No Symptoms Immunological/Allergic: No Symptoms All Other Systems: Reviewed and Negative - Past Medical History Pertinent Past Medical History: Yes Neurological History: No Pertinent History ENT History: No Pertinent History Cardiac History: No Pertinent History Respiratory History: No Pertinent History Endocrine Medical History: No Pertinent History, Diabetes Type II Musculoskeletal History: No Pertinent History GI Medical History: No Pertinent History History: No Pertinent History Psycho-Social History: Anxiety, Depression, Panic Disorder Female Reproductive Disorders: No Pertinent History Other Medical History: NONE; CURRENTLY NOT TAKING ANYTHING FOR PAIN. - Past Surgical History Past Surgical History: Yes Gastrointestinal: Cholecystectomy Female Surgical History: Section - Social History Smoking Status: Current every day smoker How long have you smoked: 22 yrs Exposure to second hand smoke: Yes Alcohol Use: Socially Drug Use: none Patient Lives Alone: No Significant Family History: no pertinent family hx - Nursing Vital Signs Nursing Vital Signs: Initial Vital Signs Temperature 98.0 F 10/06/22 20:01 Pulse Rate 87 10/06/22 20:01 Respiratory Rate 16 10/06/22 20:01 Blood Pressure 117/76 10/06/22 20:01 O2 Sat by Pulse Oximetry 98 10/06/22 20:01 Pain Scale Pain Intensity 4 - Physical Exam General Appearance: no apparent distress, alert, obese Eye Exam: PERRL/EOMI, eyes nml inspection Ears, Nose, Throat Exam: normal ENT inspection, moist mucous membranes Neck Exam: normal inspection, non-tender, supple, full range of motion Respiratory Exam: normal breath sounds, lungs clear, airway intact, No chest tenderness Cardiovascular Exam: regular rate/rhythm, normal heart sounds, normal peripheral pulses Gastrointestinal/Abdomen Exam: soft, normal bowel sounds, No tenderness Pelvic Exam: not done Rectal Exam: not done Back Exam: normal inspection, normal range of motion, No CVA tenderness, No vertebral tenderness Extremity Exam: normal inspection, normal range of motion, pelvis stable Neurologic Exam: alert, oriented x 3, cooperative, dampener II-XII nml as tested, normal mood/affect, nml cerebellar function, nml station & gait, sensation nml Skin Exam: normal color, warm, dry Lymphatic Exam: No adenopathy SpO2 Interpretation: normal O2 Delivery: Room Air Lab/Rad Data: Laboratory Results 10/06/22 Range/Units 20:12 Influenza Type A Ag NEGATIVE (NEGATIVE) Influenza Type B Ag NEGATIVE (NEGATIVE) RSV (PCR) NEGATIVE (Negative) SARS-CoV-2 (PCR) NEGATIVE (NEGATIVE) Group A Strep Antibody NOT DETECTED (NEGATIVE) - Progress Progress: unchanged Air Movement: good Progress Note: 10/06/22 21:08 Medical decision making: This patient has medical issue that is of low complexity. I obtained history and complaint directly from the patient. I performed a physical examination and from the above, in addition to reviewing her medications and drug allergy list, I determined which labs the patient required to have performed. After return of the lab results, I reviewed them and I informed the patient of the results. Based on that we provided the patient with steroid orally as well as antitussive medication here in the emergency department. Discharge plan was formulated based on the above and discussed with the patient. This included a diagnosis of upper respiratory infection and treatment with azithromycin, prednisone and an antitussive (hydrocodone/acetaminophen elixir) patient is to follow-up with her primary care provider. Blood Culture(s) Obtained: No Antibiotics given: No Counseled pt/family regarding: lab results, diagnosis, need for follow-up - Departure Departure Disposition: Home Clinical Impression: Upper respiratory infection Condition: Stable Critical Care Time: No Referrals: ANGELINA MEEKS NP [Primary Care Provider] - Follow up/PCP as directed Additional Instructions: Drink plenty of fluids. Take your medication as prescribed. Follow-up with your primary care provider for further evaluation management. Monitor your blood sugar closely while taking the steroids. Prescriptions: Hydrocodone/Acetaminophen [Hydrocodone-Acetamn 7.5-325/15] 10 ml PO Q8H PRN PRN #120 ml MDD 30 ml PRN Reason: Cough Prednisone 10 mg [Deltasone 10 mg] 10 mg PO TID #12 tablet Azithromycin 250 mg [Zithromax 250 MG TABLET] 250 mg PO ZPACK #6 tablet
[2022-10-06 20:39] LABS: Group A Strep NOT DETECTED (NEGATIVE)
[2022-10-06 20:52] LABS: INFLUENZA A NEGATIVE (NEGATIVE); INFLUENZA B NEGATIVE (NEGATIVE); RESPIRATORY SYNCTIAL VIRUS NEGATIVE (Negative); SARS-CoV-2 Xpert Express NEGATIVE (NEGATIVE)
[2022-10-06] MEDS ORDERED: ZOFRAN ODT 4 MG PO ONE (21:03)
[2022-10-06] MEDS ORDERED: HYDROCODONE-ACETAMIN 2.5-108/5 ML SOLUTION PO STA (21:03)
[2022-10-06 21:04] VITALS: BP 105/50; PULSE 93; O2SAT 96
[2022-10-06] MEDS ORDERED: DELTASONE 20 MG PO ONE (21:04)
[2022-10-06] MEDS ORDERED: ZOFRAN ODT 4 MG ONE (21:23)
[2022-10-06] MEDS ORDERED: DELTASONE 20 MG ONE (21:24)
[2022-10-06] MEDS ORDERED: HYDROCODONE-ACETAMIN 2.5-108/5 ML SOLUTION ONE (21:24)
== END 2022-10-06 21:36 | disposition home or self-care (01) ==
LOC: ED 19:43
DX: J06.9 Acute upper respiratory infection, unspecified (principal); R05.1 Acute cough; J02.9 Acute pharyngitis, unspecified; R53.83 Other fatigue; R50.9 Fever, unspecified; E11.9 Type 2 diabetes mellitus without complications; Z79.891 Long term (current) use of opiate analgesic; Z79.52 Long term (current) use of systemic steroids; Z79.84 Long term (current) use of oral hypoglycemic drugs; Z79.899 Other long term (current) drug therapy; Z28.310 Unvaccinated for COVID-19; Z72.0 Tobacco use
CPT/HCPCS: 0241U; 87651; 99283; Q0162; A9270-GY

== ENCOUNTER 2022-11-21 13:40 | Emergency (ER) | payer OTHER ==
--- NOTE | 2022-11-21 14:40 | ERPHSYRPT ---
- History of Present Illness Time Seen by Provider: 11/21/22 14:30 Source: patient Exam Limitations: no limitations Patient Subjective Stated Complaint: pt states I was getting out of bed and felt a sharp pain in my leg Triage Nursing Assessment: pt ambulated into the er; pt is axo x4; c/o foreign body to RLE; pt states "I think there is a craft blade in my leg."; wound measures 0.5 cm x 0.2 cm; surrounding area red and warm; tachycardic; skin PDW; no respiratory distress present Physician History: Patient is a 37-year-old female presents to our ED for evaluation of possible foreign body in the soft tissue at the lateral aspect of her right leg. Patient believes it is a craft knife. Injury occurred 2 days ago. Patient now observes the area to be swollen and red. No fever. No nausea vomiting or diaphoresis. Symptoms are mild to moderate in intensity. Palpation around the area reproduces pain. Pain improved at rest. She voices no other complaints or concerns at this time. Portions of this note were created with voice recognition technology. There may be grammatical, spelling, punctuation or sound alike errors Timing/Duration: today Severity: moderate Modifying Factors: Improves With: other (Palpation) Associated Symptoms: denies symptoms Allergies/Adverse Reactions: No Known Drug Allergies Allergy (Verified 11/21/22 13:49) Home Medications: glyBURIDE [Glyburide] 2.5 mg PO BID 11/21/20 [History] Montelukast Sodium 10 mg [Singulair 10 MG] 10 mg PO BID 07/28/21 [History] Venlafaxine HCl [Venlafaxine HCl ER] 150 mg PO DAILY 07/28/21 [History] Hx Tetanus, Diphtheria Vaccination/Date Given: No Hx Influenza Vaccination/Date Given: No Hx Pneumococcal Vaccination/Date Given: No Travel Risk - International Travel Have you traveled outside of the country in past 3 weeks: No - Coronavirus Screening Are you exhibiting any of the following symptoms?: No Close contact with a COVID-19 positive Pt in past 14-21 Days: No - Vaccine Status Have you recieved a Covid-19 vaccination: No - Review of Systems Constitutional: No Symptoms, No Fever, No Chills Eyes: No Symptoms Ears, Nose, & Throat: No Symptoms Respiratory: No Symptoms, No Cough, No Dyspnea Cardiac: No Symptoms, No Chest Pain, No Edema, No Syncope Abdominal/Gastrointestinal: No Symptoms, No Abdominal Pain, No Nausea, No Vomiting, No Diarrhea Genitourinary Symptoms: No Symptoms, No Dysuria Musculoskeletal: No Symptoms, No Back Pain, No Neck Pain Skin: No Symptoms, No Rash Neurological: No Symptoms, No Dizziness, No Focal Weakness, No Sensory Changes Psychological: No Symptoms Endocrine: No Symptoms Hematologic/Lymphatic: No Symptoms Immunological/Allergic: No Symptoms All Other Systems: Reviewed and Negative - Past Medical History Pertinent Past Medical History: Yes Neurological History: No Pertinent History ENT History: No Pertinent History Cardiac History: No Pertinent History Respiratory History: No Pertinent History Endocrine Medical History: No Pertinent History, Diabetes Type II Musculoskeletal History: No Pertinent History GI Medical History: No Pertinent History History: No Pertinent History Psycho-Social History: Anxiety, Depression, Panic Disorder Female Reproductive Disorders: No Pertinent History Other Medical History: NONE; CURRENTLY NOT TAKING ANYTHING FOR PAIN. - Past Surgical History Past Surgical History: Yes Gastrointestinal: Cholecystectomy Female Surgical History: Section - Social History Smoking Status: Current every day smoker How long have you smoked: 22 yrs Exposure to second hand smoke: Yes Alcohol Use: Socially Drug Use: none Patient Lives Alone: No Significant Family History: no pertinent family hx - Female History Hx Now: No - Nursing Vital Signs Nursing Vital Signs: Initial Vital Signs Temperature 98.9 F 11/21/22 13:52 Pulse Rate 104 H 11/21/22 13:52 Respiratory Rate 24 11/21/22 13:52 Blood Pressure 137/93 11/21/22 13:52 O2 Sat by Pulse Oximetry 100 11/21/22 13:52 Pain Scale Pain Intensity 3 - Physical Exam General Appearance: no apparent distress, alert Eye Exam: PERRL/EOMI, eyes nml inspection Ears, Nose, Throat Exam: normal ENT inspection, moist mucous membranes Neck Exam: normal inspection, non-tender, supple, full range of motion Respiratory Exam: normal breath sounds, lungs clear, airway intact, No respiratory distress Cardiovascular Exam: regular rate/rhythm, normal heart sounds, normal peripheral pulses Gastrointestinal/Abdomen Exam: soft, normal bowel sounds, No tenderness, No mass Back Exam: normal inspection, normal range of motion, No CVA tenderness, No vertebral tenderness Extremity Exam: normal inspection, normal range of motion, pelvis stable, other (Palpable foreign body lateral aspect right leg. The area is erythematous. No lymphangitis right lower extremities neurovascular tact distally. Compartments are soft. Cap refill less than 2 seconds..) Neurologic Exam: alert, oriented x 3, cooperative, normal mood/affect, sensation nml, No motor deficits Skin Exam: normal color, warm, dry, No rash Lymphatic Exam: No adenopathy SpO2 Interpretation: normal SpO2: 100 O2 Delivery: Room Air - Course Nursing assessment & vital signs reviewed: Yes - Radiology Exams Lower Leg X-ray Interpretation: Teleradiologist Report (Foreign body lateral aspect right leg.) Ordered Tests: Active Orders 24 hr Category Date Time Status LOWER LEG Stat Exams 11/21/22 14:05 Completed - Progress Progress: improved Progress Note: 37-year-old female presents to our ED for evaluation of foreign body to the right leg. Foreign body confirmed on x-ray. There is a palpable felt foreign body lateral aspect right leg. There are some overlying erythema. No lymphangitis. Complexity of problem addressed is low. Acute uncomplicated. No critical care time. Complexity of data reviewed and analyzed is limited. Dr. Calle ordered x-ray. X-ray independently reviewed with Dr. Calle. Foreign body observed. Risk complication and/or morbidity/mortality patient management is minimal. Patient referred to orthopedic clinic to see rock wool insulator for removal foreign body. Patient declined pain medication. Ground Water Contractor will prescribe antibiotic as indicated. Patient transferred to orthopedic clinic to see rock wool insulator via wheelchair. She voices no other complaints or concerns at this time. Portions of this note were created with voice recognition technology. There may be grammatical, spelling, punctuation or sound alike errors 11/21/22 15:06 11/21/22 15:15 Counseled pt/family regarding: diagnosis, need for follow-up, rad results - Departure Departure Disposition: Home Clinical Impression: Foreign body of leg Condition: Stable Critical Care Time: No Referrals: ANGELINA MEEKS NP [Primary Care Provider] - Follow up/PCP as directed Additional Instructions: Discharge/Care Plan LAMONT LONDONO was seen on 11/21/22 in the Emergency Room. The patient was counseled regarding Diagnosis,Lab results, Imaging studies, need for follow up and when to return to the Emergency Room. Prescriptions given: Discharge Note I have spoken with the patient and/or caregivers. I have explained the patient's condition, diagnosis and treatment plan based on the information available to me at this time. I have answered the patient's and/or caregiver's questions and addressed any concerns. The patient and/or caregivers have as good understanding of the patient's diagnosis, condition and treatment plan as can be expected at this point. The vital signs have been stable. The patient's condition is stable and appropriate for discharge from the emergency department. The patient will pursue further outpatient evaluation with the primary care physician or other designated or consulting physician as outlined in the discharge instructions. The patient and/or caregivers are agreeable to this plan of care and follow-up instructions have been explained in detail. The patient and/or caregivers have received these instruction. The patient/and or caregivers are aware that any significant change in condition or worsening of symptoms should prompt an immediate return to this or the closest emergency department or call 911. Outpatient Orders: Ortho Referral Time Frame: 1 Day, Facility: [facility], Location: ORTHO CLINIC
--- NOTE | 2022-11-21 14:55 | XRAY ---
Indication: Foreign body/razor blade mid calf. Comparison: None Portable 2 view right lower leg demonstrates subcutaneous intact foreign body/razor blade lateral aspect mid calf level. No other bony, articular, or soft tissue abnormalities.
[2022-11-21 15:06] VITALS: BP 117/76; PULSE 94
[2022-11-21 15:08] VITALS: O2SAT 100
== END 2022-11-21 15:27 | disposition home or self-care (01) ==
LOC: ED 13:40
DX: S81.821A Laceration with foreign body, right lower leg, initial encounter (principal); E11.9 Type 2 diabetes mellitus without complications; Z79.84 Long term (current) use of oral hypoglycemic drugs; Z79.899 Other long term (current) drug therapy; Z72.0 Tobacco use; Z28.310 Unvaccinated for COVID-19
CPT/HCPCS: 73590; 99282

== ENCOUNTER 2023-03-17 17:15 | Emergency (ER) | payer OTHER ==
[2023-03-17 17:40] VITALS: BP 124/80
[2023-03-17 17:44] LABS: Absolute Neutrophil Ct (ANC) 4.66 x10^3/uL (1.4-6.9); BASOPHIL % 0.4 % (0.0-0.4); Basophil (Absolute #) 0.03 x10^3/uL (0-0.4); Eosinophil % 3.2 % (0.00-5.0); Eosinophil (Absolute #) 0.26 x10^3/uL (0-0.5); Hematocrit 35.9 % (35-47); Hemoglobin 11.5 g/dL (12.0-16.0); IMMATURE GRAN # 0.04 x10^3u/L (0.00-0.03); IMMATURE GRAN % 0.5 % (0.00-0.4); Lymphocyte (Absolute #) 2.47 x10^3/uL (1.0-4.6); Lymphocytes % 30.1 % (24.0-44.0); Mean Cell Volume 100.3 fL (78-100); Mean Corpuscular Hemoglobin 32.1 pg (26-32); Mean Platelet Volume 9.8 fL (7.5-11.0); Monocyte (Absolute #) 0.75 x10^3/uL (0.0-1.3); Monocytes % 9.1 % (0.0-12.0); Neutrophil % 56.7 % (36.0-66.0); Platelet Count 295 x10^3/uL (150-450); Red Blood Count 3.58 x10^6/uL (4.1-5.4); White Blood Count 8.2 x10^3/uL (4.0-10.5)
--- NOTE | 2023-03-17 17:50 | ERPHSYRPT ---
- History of Present Illness Source: patient Exam Limitations: other (Poor historian) Patient Subjective Stated Complaint: Pt reports yesterday evening her left leg started hurting, intermittent throbbing constant tight feeling. Pt also feels her leg is swollen. Triage Nursing Assessment: Pt alert and oriented x3. No apparent respiratory distress. Ambulated to ED cot without difficulty. No redness/wounds to left leg. Skin w/p/d. Physician History: 37 yo obese WF w L hip and LLE pain x 1 day. Pt states that the pain is 3/10 and up to 8/10 w weight bearing. She denies injury/chest pain/dyspnea. No h/o DVT or PE reported. She states that her LLE is edematous. Method of Injury: unknown Occurred: yesterday Quality: constant Severity of Pain-Max: severe Severity of Pain-Current: mild Lower Extremities Pain: hip: left, leg: left, knee: left Allergies/Adverse Reactions: No Known Drug Allergies Allergy (Verified 03/17/23 17:33) Home Medications: glyBURIDE [Glyburide] 2.5 mg PO BID 11/21/20 [History] Venlafaxine HCl [Venlafaxine HCl ER] 150 mg PO DAILY 07/28/21 [History] Hx Tetanus, Diphtheria Vaccination/Date Given: Yes Hx Influenza Vaccination/Date Given: No Hx Pneumococcal Vaccination/Date Given: No Travel Risk - International Travel Have you traveled outside of the country in past 3 weeks: No - Coronavirus Screening Are you exhibiting any of the following symptoms?: No Close contact with a COVID-19 positive Pt in past 14-21 Days: No - Vaccine Status Have you recieved a Covid-19 vaccination: No - Review of Systems Constitutional: No Symptoms Eyes: No Symptoms Ears, Nose, & Throat: No Symptoms Respiratory: No Symptoms Cardiac: No Symptoms Abdominal/Gastrointestinal: No Symptoms Skin: No Symptoms Neurological: No Symptoms Psychological: No Symptoms Endocrine: No Symptoms Hematologic/Lymphatic: No Symptoms Immunological/Allergic: No Symptoms - Past Medical History Pertinent Past Medical History: Yes Neurological History: No Pertinent History ENT History: No Pertinent History Cardiac History: High Cholesterol Respiratory History: No Pertinent History Endocrine Medical History: No Pertinent History, Diabetes Type II Musculoskeletal History: No Pertinent History GI Medical History: No Pertinent History History: No Pertinent History Psycho-Social History: Anxiety, Depression, Panic Disorder Female Reproductive Disorders: No Pertinent History Other Medical History: NONE; CURRENTLY NOT TAKING ANYTHING FOR PAIN. - Past Surgical History Past Surgical History: Yes Gastrointestinal: Cholecystectomy Female Surgical History: Section - Social History Smoking Status: Current every day smoker How long have you smoked: 22 yrs Exposure to second hand smoke: Yes Alcohol Use: Socially Drug Use: none Patient Lives Alone: No Significant Family History: no pertinent family hx - Female History Hx Last Menstrual Period: 03/11/23 Hx Now: No - Nursing Vital Signs Nursing Vital Signs: Initial Vital Signs Temperature 97.9 F 03/17/23 17:28 Pulse Rate 109 H 03/17/23 17:28 Respiratory Rate 16 03/17/23 17:28 Blood Pressure 124/80 03/17/23 17:28 O2 Sat by Pulse Oximetry 97 03/17/23 17:28 Pain Scale Pain Intensity 5 Tachy - Physical Exam General Appearance: no apparent distress, anxiety Eyes, Ears, Nose, Throat Exam: normal ENT inspection, TMs normal, pharynx normal, moist mucous membranes Neck Exam: normal inspection, non-tender, supple, full range of motion, No Brudzinski, No Kernig's, No meningismus, No carotid bruit Cardiovascular/Respiratory Exam: normal breath sounds, tachycardia Gastrointestinal/Abdominal Exam: non-tender, soft Back Exam: normal inspection, normal range of motion, No CVA tenderness Hips Exam: left: pain (TTP L greater trochanter) Legs Exam: left leg: swelling (Mild L calf/Good pedal pulse, distal sensation, and capillary return) Knees Exam: bilateral knee: non-tender, normal inspection, normal range of motion, no evidence of injury Ankle Exam: bilateral ankle: swelling (B edema) Foot Exam: bilateral foot: non-tender, normal inspection, normal range of motion, no evidence of injury DTR - Lower Extremities Exam: knee (R): 2+, knee (L): 2+ Neuro/Tendon Exam: normal sensation, normal motor functions, normal tendon functions, responds to pain Mental Status Exam: alert, oriented x 3, cooperative Skin Exam: normal color, warm, dry SpO2 Interpretation: normal SpO2: 97 O2 Delivery: Room Air - Course Nursing assessment & vital signs reviewed: Yes - CT Exams Pelvis CT Interpretation: Discussed w/radiologist (CT pelvis-neg per Dr. Stoll) Ordered Tests: Active Orders 24 hr Category Date Time Status PELVIS WITHOUT CONTRAST [CT] Stat Exams 03/17/23 17:45 Taken CBC W DIFF Stat Lab 03/17/23 17:40 Completed CMP Stat Lab 03/17/23 17:40 Completed D-DIMER QUANTITATIVE Stat Lab 03/17/23 17:40 Completed Medication Summary Discontinued Medications Generic Name Dose Route Start Last Admin Trade Name Chelsea PRN Reason Stop Dose Admin Ketorolac Tromethamine 30 mg 03/17/23 18:55 03/17/23 19:04 Ketorolac Tromethamine 30 Mg/Ml Inj IM 03/17/23 18:56 30 mg STAT ONE Administration Ketorolac Tromethamine Confirm 03/17/23 19:03 Ketorolac Tromethamine 30 Mg/Ml Inj Administered 03/17/23 19:04 Dose 30 mg .ROUTE .STK-MED ONE Lab/Rad Data: Laboratory Result Diagrams 03/17/23 17:40 03/17/23 17:40 Laboratory Results 03/17/23 03/17/23 03/17/23 Range/Units 17:40 17:40 17:40 WBC 8.2 (4.0-10.5) x10^3/uL RBC 3.58 L (4.1-5.4) x10^6/uL Hgb 11.5 L (12.0-16.0) g/dL Hct 35.9 (35-47) % MCV 100.3 H (78-100) fL MCH 32.1 H (26-32) pg MCHC 32.0 (32-36) g/dL RDW 13.0 (11.5-14.0) % Plt Count 295 (150-450) x10^3/uL MPV 9.8 (7.5-11.0) fL Gran % 56.7 (36.0-66.0) % Immature Gran % (Auto) 0.5 H (0.00-0.4) % Nucleat RBC Rel Count 0.0 (0.00-0.1) % Eos # (Auto) 0.26 (0-0.5) x10^3/uL Immature Gran # (Auto) 0.04 H (0.00-0.03) x10^3u/L Absolute Lymphs (auto) 2.47 (1.0-4.6) x10^3/uL Absolute Monos (auto) 0.75 (0.0-1.3) x10^3/uL Absolute Nucleated RBC 0.00 (0.00-0.01) x10^3u/L Lymphocytes % 30.1 (24.0-44.0) % Monocytes % 9.1 (0.0-12.0) % Eosinophils % 3.2 (0.00-5.0) % Basophils % 0.4 (0.0-0.4) % Absolute Granulocytes 4.66 (1.4-6.9) x10^3/uL Basophils # 0.03 (0-0.4) x10^3/uL D-Dimer 0.37 (0.0-0.50) mg/L Sodium 139 (137-145) mmol/L Potassium 3.9 (3.5-5.1) mmol/L Chloride 104 (98-107) mmol/L Carbon Dioxide 26 (22-30) mmol/L Anion Gap 12.6 (5-15) MEQ/L BUN 13 (7-17) mg/dL Creatinine 0.80 (0.52-1.04) mg/dL Estimated GFR > 60.0 ML/MIN Glucose 115 H (74-106) mg/dL Calcium 8.9 (8.4-10.2) mg/dL Total Bilirubin 0.30 (0.2-1.3) mg/dL AST 32 (14-36) U/L ALT 33 (0-35) U/L Alkaline Phosphatase 41 (38-126) U/L Serum Total Protein 7.8 (6.3-8.2) g/dL Albumin 4.0 (3.5-5.0) g/dL - Progress Progress: improved Progress Note: 03/17/23 23:48 Nursing note and vital signs reviewed No food or housing insecurities noted All lab results reviewed and shared w pt CT results reviewed and share w pt 03/17/23 23:49 30mg IM Toradol DD negative/pt wo chest pain/dyspnea/obvious LLE edema US scheduled for tomorrow at 10:30AM/pt advised to arrive at 10:15AM 03/17/23 23:51 Counseled pt/family regarding: lab results, diagnosis, need for follow-up, rad results Medical Desision Making - Diagnostic Testing Radiological Interpretation: Discussed w/ radiologist - Risk of complications The pt has a mod risk of morbidity or mortality based on: Need for prescription drug management - Departure Departure Disposition: Home Clinical Impression: Left leg pain Condition: Stable Critical Care Time: No Referrals: ANGELINA MEEKS NP [Primary Care Provider] - Follow up/PCP as directed Additional Instructions: Toradol as needed for pain Rest/Heat/Massage Ultrasound tomorrow 10:30, arrive at 10:15 Return to ER for increasing pain, swelling, or temperature greater than 100.5 Prescriptions: Ketorolac Trometh 10 mg Tab [TORAdol 10 MG TABLET] 10 mg PO TIDPRN PRN #10 tablet PRN Reason: Pain
[2023-03-17 18:00] LABS: ALKALINE PHOSPHATASE 41 U/L (38-126); ANION GAP 12.6 MEQ/L (5-15); BLOOD UREA NITROGEN 13 mg/dL (7-17); CHLORIDE 104 mmol/L (98-107); Calcium 8.9 mg/dL (8.4-10.2); Carbon Dioxide 26 mmol/L (22-30); EST GLOMERULAR FILTRATION RATE > 60.0 ML/MIN; Glucose 115 mg/dL (74-106); Potassium 3.9 mmol/L (3.5-5.1); SGOT/AST 32 U/L (14-36); SGPT/ALT 33 U/L (0-35); SODIUM 139 mmol/L (137-145); Total Protein 7.8 g/dL (6.3-8.2)
[2023-03-17] MEDS ORDERED: TORAdol 30 mg Injection IM ONE (18:55)
[2023-03-17] MEDS ORDERED: TORAdol 30 mg Injection ONE (19:03)
[2023-03-17 19:32] VITALS: PULSE 96
[2023-03-17 23:51] VITALS: O2SAT 97
--- NOTE | 2023-03-18 08:39 | XRAY ---
Indication: Left hip pain. Multiple contiguous axial images obtained through the and pelvis only with special attention to the osseous structures. Sagittal and coronal reformatted images obtained. Comparison: CT abdomen/pelvis March 06, 2015 No acute fracture, dislocation, or suspicious bony lesions. Stable mild lumbosacral junction degenerative disc disease. Visualized noncontrasted soft tissues including pelvic contents are unremarkable. Impression: Stable lumbosacral junction degenerative disc disease. Otherwise continued negative CT pelvis without contrast exam.
== END 2023-03-17 19:33 | disposition home or self-care (01) ==
LOC: ED 17:15
DX: M79.605 Pain in left leg (principal); M25.552 Pain in left hip; E78.5 Hyperlipidemia, unspecified; E11.9 Type 2 diabetes mellitus without complications; Z79.84 Long term (current) use of oral hypoglycemic drugs; Z79.899 Other long term (current) drug therapy; Z28.310 Unvaccinated for COVID-19; Z72.0 Tobacco use
CPT/HCPCS: 36415; 72192; 80053; 85025; 85379; 96372; 99283; J1885

== ENCOUNTER 2023-09-19 06:54 | Emergency (ER) | payer OTHER ==
[2023-09-19 06:57] VITALS: TEMP 98.3
--- NOTE | 2023-09-19 07:24 | ERPHSYRPT ---
- History of Present Illness Time Seen by Provider: 09/19/23 07:10 Source: patient Exam Limitations: no limitations Patient Subjective Stated Complaint: cough, sob, fever, fatigue Triage Nursing Assessment: Pt ambulated into ER without diff, daughter at bedside. Pt alert and oriented x4. Pt c/o cough, fatigue, sob, and fever x1 week. Lungs clear, heart tones reg. Abd lg, obese with active bs x4 quad, nontender. Skin w,p,d. No edema noted. Physician History: This is a morbidly obese 38-year-old white female patient who presents with 1 week history of worsening cough, shortness of breath fever and fatigue. Patient denies chest pain. Patient has no known exposure to individuals with similar symptoms. Patient has a history of hyperlipidemia, anxiety/panic disorder and diabetes. She is not on any diabetic medication at this time. Timing/Duration: week(s) (1) Cough Quality/Degree: moderate, dry cough Possible Cause: occasional episodes Modifying Factors: Improves With: activity, coughing Associated Symptoms: fever, cough, shortness of breath (Coughing), No chest pain/soreness Allergies/Adverse Reactions: No Known Drug Allergies Allergy (Verified 09/19/23 07:00) Hx Tetanus, Diphtheria Vaccination/Date Given: Yes Hx Influenza Vaccination/Date Given: No Hx Pneumococcal Vaccination/Date Given: No Immunizations Up to Date: No Travel Risk - International Travel Have you traveled outside of the country in past 3 weeks: No - Coronavirus Screening Are you exhibiting any of the following symptoms?: Yes Symptoms: Fever, Cough: New Onset, Shortness of Breath, Vomiting/Diarrhea, Headaches/Body Aches/Fatigue Close contact with a COVID-19 positive Pt in past 14-21 Days: No - Vaccine Status Have you recieved a Covid-19 vaccination: No - Review of Systems Constitutional: Fever, Fatigue Eyes: No Symptoms Ears, Nose, & Throat: No Symptoms Respiratory: Cough, Dyspnea (Coughing) Cardiac: No Symptoms Abdominal/Gastrointestinal: No Symptoms Genitourinary Symptoms: No Symptoms Musculoskeletal: Arthralgias, Myalgias Skin: No Symptoms Neurological: No Symptoms Psychological: No Symptoms Endocrine: No Symptoms Hematologic/Lymphatic: No Symptoms Immunological/Allergic: No Symptoms All Other Systems: Reviewed and Negative - Past Medical History Pertinent Past Medical History: Yes Neurological History: No Pertinent History ENT History: No Pertinent History Cardiac History: High Cholesterol Respiratory History: No Pertinent History Endocrine Medical History: Diabetes Type II Musculoskeletal History: No Pertinent History GI Medical History: Gallbladder Disease History: No Pertinent History Psycho-Social History: Anxiety, Depression, Panic Disorder Female Reproductive Disorders: No Pertinent History Other Medical History: NONE; CURRENTLY NOT TAKING ANYTHING FOR PAIN. - Past Surgical History Past Surgical History: Yes Gastrointestinal: Cholecystectomy Female Surgical History: Section - Social History Smoking Status: Current every day smoker How long have you smoked: 23 yrs Exposure to second hand smoke: Yes Alcohol Use: Socially Drug Use: none Patient Lives Alone: No Significant Family History: no pertinent family hx - Female History Hx Now: No - Nursing Vital Signs Nursing Vital Signs: Initial Vital Signs Temperature 98.3 F 09/19/23 06:56 Pulse Rate 113 H 09/19/23 06:56 Respiratory Rate 20 09/19/23 06:56 Blood Pressure 118/89 09/19/23 06:56 O2 Sat by Pulse Oximetry 98 09/19/23 06:56 Pain Scale Pain Intensity 5 - Physical Exam General Appearance: no apparent distress, alert, anxiety, obese Eye Exam: PERRL/EOMI, eyes nml inspection Ears, Nose, Throat Exam: normal ENT inspection, moist mucous membranes Neck Exam: normal inspection, non-tender, supple, full range of motion Respiratory Exam: rhonchi (Bilateral upper lungs), No chest tenderness, No respiratory distress, No wheezing Cardiovascular Exam: tachycardia Gastrointestinal/Abdomen Exam: soft, normal bowel sounds, No tenderness Pelvic Exam: not done Rectal Exam: not done Back Exam: normal inspection, normal range of motion, No CVA tenderness, No vertebral tenderness Extremity Exam: normal inspection, normal range of motion, pelvis stable Neurologic Exam: alert, oriented x 3, 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, 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, normal mood/affect, nml cerebellar function, nml station & gait, sensation nml Skin Exam: normal color, warm, dry Lymphatic Exam: No adenopathy SpO2 Interpretation: normal SpO2: 98 O2 Delivery: Room Air - Course Nursing assessment & vital signs reviewed: Yes Ordered Tests: Active Orders 24 hr Category Date Time Status IV Insertion STAT Care 09/19/23 07:17 Active CHEST 1 VIEW (PORTABLE) Stat Exams 09/19/23 07:38 Taken Medication Summary Discontinued Medications Generic Name Dose Route Start Last Admin Trade Name Freq PRN Reason Stop Dose Admin Hydrocodone Bitart/Acetaminophen 10 ml 09/19/23 07:37 09/19/23 07:43 Hydrocodone/Acetaminophen 5 Ml Udcup PO 09/19/23 07:38 10 ml STAT STA Administration Hydrocodone Bitart/Acetaminophen Confirm 09/19/23 07:41 Hydrocodone/Acetaminophen 5 Ml Udcup Administered 09/19/23 07:42 Dose 10 ml .ROUTE .STK-MED ONE Methylprednisolone Sodium 0 mg 09/19/23 07:37 09/19/23 07:43 Succinate 125 mg/ Sterile IV 09/19/23 07:38 125 mg Water 2 ml STAT ONE Administration Methylprednisolone Sodium Succinate Confirm 09/19/23 07:41 Methylprednis Sod Succ 125 Mg/2 Ml Vial Administered 09/19/23 07:42 Dose 125 mg .ROUTE .STK-MED ONE Sterile Water Confirm 09/19/23 07:41 Water For Injection,Sterile 10 Ml Vial Administered 09/19/23 07:42 Dose 10 ml IJ .STK-MED ONE Lab/Rad Data: Laboratory Results 09/19/23 09/19/23 Range/Units 07:15 07:15 Influenza Type A Ag POSITIVE (NEGATIVE) Influenza Type B Ag NEGATIVE (NEGATIVE) RSV (PCR) NEGATIVE (NEGATIVE) SARS-CoV-2 (PCR) NEGATIVE (NEGATIVE) Group A Strep Antibody NOT DETECTED (NEGATIVE) - Progress Progress: improved, re-examined Air Movement: fair Progress Note: 09/19/23 07:51 This patient's medical issue is 1 of low to moderate complexity. The level of complexity and the workup performed is based on review of the patient's past medical history, review of the patient's medication list, review of the patient's drug allergy list, history of present illness and physical findings on examination. The workup in this patient includes chest x-ray, viral swabs, strep test. Intravenous line is placed. We will provide the patient with Solu- Medrol 125 mg intravenously and hydrocodone/acetaminophen elixir for treatment and control of her cough 09/19/23 08:11 I interpreted the laboratory data results. Patient has influenza A infection. I interpreted the chest x-ray. There is no evidence of any acute cardiopulmonary process. Blood Culture(s) Obtained: No Antibiotics given: No Counseled pt/family regarding: lab results, diagnosis, need for follow-up, rad results Medical Desision Making - Independent Historian Additional History obtained from: Child - Diagnostic Testing Diagnostic test were ordered, analyzed, and reviewed by me: Yes Radiological Interpretation: Interpreted by me - Risk of complications The pt has a mod risk of morbidity or mortality based on: Need for prescription drug management - Departure Departure Disposition: Home Clinical Impression: Influenza A H1N1 infection Condition: Stable Critical Care Time: No Additional Instructions: Drink plenty of clear liquids. Avoid exposure to any type of smoke. Take your medications as prescribed. Follow-up with your primary care provider for further evaluation management Prescriptions: Prednisone 10 mg [Deltasone 10 mg] 10 mg PO TID #12 tablet Hydrocodone/Acetaminophen [Hydrocodone-Acetamn 7.5-325/15] 10 ml PO Q8H PRN #120 ml MDD 30 ml PRN Reason: Cough Albuterol 8 gm Mdi Hfa [Ventolin Hfa MDI] 8 gm IH Q4H #1 unit
[2023-09-19] MEDS ORDERED: HYDROCODONE-ACETAMIN 2.5-108/5 ML SOLUTION PO STA (07:37)
[2023-09-19] MEDS ORDERED: solu-MEDROL 125 MG, Sterile H2O 10 ml 2 ML IV ONE ×2 (07:37)
[2023-09-19] MEDS ORDERED: Sterile H2O 10 ml IJ ONE (07:41)
[2023-09-19] MEDS ORDERED: solu-MEDROL ONE (07:41)
[2023-09-19] MEDS ORDERED: HYDROCODONE-ACETAMIN 2.5-108/5 ML SOLUTION ONE (07:41)
[2023-09-19 08:02] LABS: INFLUENZA B NEGATIVE (NEGATIVE); RESPIRATORY SYNCTIAL VIRUS NEGATIVE (NEGATIVE); SARS-CoV-2 Xpert Express NEGATIVE (NEGATIVE)
[2023-09-19 08:08] LABS: INFLUENZA A POSITIVE (NEGATIVE)
[2023-09-19] MEDS ORDERED: PROVENTIL 2.5 MG/3 ML NEB IH ONE ×2 (08:16→08:20)
[2023-09-19 08:37] VITALS: BP 90/76; PULSE 80; RESP 19; O2SAT 99
--- NOTE | 2023-09-19 09:14 | XRAY ---
Indication: Cough and short of breath. Comparison: November 06, 2021 Portable chest again demonstrates normal heart, lungs, and bony thorax.
== END 2023-09-19 08:38 | disposition home or self-care (01) ==
LOC: ED 06:54
DX: J10.1 Influenza due to other identified influenza virus with other respiratory manifestations (principal); R05.1 Acute cough; R06.02 Shortness of breath; R50.9 Fever, unspecified; R53.83 Other fatigue; E78.5 Hyperlipidemia, unspecified; E11.9 Type 2 diabetes mellitus without complications; Z79.52 Long term (current) use of systemic steroids; Z79.891 Long term (current) use of opiate analgesic; Z28.310 Unvaccinated for COVID-19; Z72.0 Tobacco use
CPT/HCPCS: 0241U; 36000; 71045; 87651; 94640; 96374; 99284; J2930; J7609; A9270-GY